=== PATIENT | female | born 1945 | race Caucasian/White ===

== ENCOUNTER 2017-09-01 11:21 | Inpatient (IN) ==
[2017-09-01] MEDS ORDERED: PANTOPRAZOLE 40 MG VIAL IV STA (14:15)
[2017-09-01] MEDS ORDERED: ONDANSETRON 4 MG/2 ML VIAL IV STA (14:15)
[2017-09-01] MEDS ORDERED: SODIUM CHLORIDE 0.9% 500 ML IV STA (14:15)
[2017-09-01] MEDS ORDERED: PANTOPRAZOLE 40 MG VIAL IV ONE (14:42)
[2017-09-01] MEDS ORDERED: ONDANSETRON 4 MG/2 ML VIAL ONE (14:42)
[2017-09-01 15:27] LABS: INR 1.2; PT Patient Result 12.6 SECS
[2017-09-01 15:55] LABS: Alanine Aminotransferase 10 U/L (13-56); Albumin 3.2 G/DL (3.4-5.0); Alkaline Phosphatase 85 U/L (45-117); Aspartate Amino Transferase 14 U/L (0-37); Blood Urea Nitrogen 51 MG/DL (7-18); Calcium 8.6 MG/DL (8.5-10.1); Glucose 108 MG/DL (74-106); Osmolality,Calculated 289.7 MOS/KG (273-304); Potassium 4.4 MMOL/L (3.5-5.1); Sodium 138 MMOL/L (136-145); Total Protein 6.3 G/DL (6.4-8.3); Troponin I Only < 0.015 NG/ML (0.00-0.045)
[2017-09-01] MEDS ORDERED: SODIUM CHLORIDE 0.9% 1,000 ML IV PRN (16:39)
[2017-09-01] MEDS ORDERED: GLUCAGON 1 MG VIAL IM PRN (16:41)
[2017-09-01] MEDS ORDERED: DEXTROSE 50% 25 GM/50 ML VIAL IV PRN (16:41)
[2017-09-01 16:42] LABS: Mean Corpuscular HGB Conc 25.5 GM/DL (32-36); Mean Corpuscular Hemoglobin 16 PG (27-34); Mean Corpuscular Volume 63.1 FL (87-102); NRBC # 0.05 10*3/uL; Platelet Count 156 T/CUMM (130-400); Red Blood Count 2.17 MC/CUMM (3.8-5.5); Red Cell Distribution Width 23.2 % (9.3-17.3); White Blood Count 4.2 T/CUMM (4-12)
[2017-09-01 16:46] LABS: Hematocrit 13.7 VOL% (35.7-47.0); Hemoglobin 3.5 GM/DL (12.0-16.0)
[2017-09-01 16:52] LABS: Ammonia 20 UMOL/L (11-32)
[2017-09-01 17:01] LABS: Alanine Aminotransferase < 9 U/L (13-56); Albumin 3.3 G/DL (3.4-5.0); Alkaline Phosphatase 85 U/L (45-117); Aspartate Amino Transferase 13 U/L (0-37); Bilirubin,Indirect 0.5 MG/DL (0.0-1.0); Total Protein 6.4 G/DL (6.4-8.3)
[2017-09-01 17:25] LABS: Lymphocytes 12 % (20-55); Nucleated Red Blood Cells 1 (0-5); Segmented Neutrophils 88 % (50-85); Total Cells Counted 100
[2017-09-01 17:36] LABS: Lymphocytes % 14.9 % (21.3-54.2); Neutrophils % 76.3 % (38.7-73.9)
[2017-09-01 17:37] LABS: Eosinophils % 0.8 % (0.00-10.9); Immature Granulocytes Absolute 0.04 #; Lymphocytes # 0.6 10*3/uL (1.4-4.0); Monocytes # 0.3 10*3/uL (0.11-0.8)
[2017-09-01 17:39] LABS: Hypochromasia 3+; Microcytosis 3+; Schistocytes Few; Tear Drop Cells Few
[2017-09-01 17:40] LABS: Elliptocytes Few; Platelet Estimate Normal
[2017-09-01 18:10] LABS: Lactic Acid 0.9 MMOL/L (0.4-2.0)
[2017-09-01 18:25] LABS: Hepatitis A Ab IgM Quant 0.17 Index; Hepatitis A Ab IgM Result Negative (Negative); Hepatitis B Core IgM Quant 0.22 Index; Hepatitis B Core IgM Result Negative (Negative); Hepatitis B Surface Ag Quant < 0.10 Index; Hepatitis B Surface Ag Result Negative (Negative); Hepatitis C Virus Ab Quant 0.05 Index; Hepatitis C Virus Ab Result Negative (Negative)
[2017-09-01 18:44] LABS: Ferritin 3.6 ng/ml (8-252); Total Protein 6.5 G/DL (6.4-8.3)
[2017-09-01 19:31] LABS: Apearance,Urine CLEAR (Clear); Bacteria,Urine Occasional /HPF (Few); Bilirubin,Urine Negative (Negative); Blood, Urine Negative (Negative); Glucose,Urine (UA) Negative (Negative); Ketones,Urine Negative (Negative); Nitrite,Urine Negative (Negative); Protein,Urine Negative; RBC,Urine <1 /HPF (0-4); Squamous Epithelial Cell,Urine Occasional /HPF (0-10); Urine Color Yellow (Yellow); Urine Specific Gravity 1.009 (1.001-1.035); Urine Urobilinogen < 2.0 EU/DL (0.2-1.0); WBC,Urine <1 /HPF (0-6)
[2017-09-01 19:32] LABS: Folate 9.8 NG/ML (5.4-24.0); Vitamin B12 599 PG/ML (211-911)
[2017-09-01 19:48] LABS: Thyroid Stimulating Hormone 11.5 uIU/ml (0.358-3.74)
[2017-09-01] MEDS: INSULIN LISPRO 100 UNIT/ML SUBCUT SCH (22:58)
[2017-09-02 03:24] LABS: Basophils % 0.2 % (0.0-0.8); Eosinophils # 0.1 10*3/uL (0.0-0.87); Eosinophils % 1.1 % (0.00-10.9); Hematocrit 19.1 VOL% (35.7-47.0); Immature Granulocytes % 1.3 %; Immature Granulocytes Absolute 0.07 #; Lymphocytes # 0.6 10*3/uL (1.4-4.0); Lymphocytes % 10.4 % (21.3-54.2); Mean Corpuscular HGB Conc 29.8 GM/DL (32-36); Mean Corpuscular Hemoglobin 21 PG (27-34); Mean Corpuscular Volume 71.3 FL (87-102); Monocytes # 0.4 10*3/uL (0.11-0.8); Monocytes % 6.6 % (1.7-12.7); NRBC # 0.09 10*3/uL; Neutrophils # 4.4 10*3/uL (1.4-7.4); Neutrophils % 80.4 % (38.7-73.9); Platelet Count 122 T/CUMM (130-400); Red Blood Count 2.68 MC/CUMM (3.8-5.5); Red Cell Distribution Width 26.9 % (9.3-17.3); White Blood Count 5.5 T/CUMM (4-12)
[2017-09-02 03:26] LABS: Basophils % 0.2 % (0.0-0.8); Eosinophils # 0.1 10*3/uL (0.0-0.87); Eosinophils % 1.1 % (0.00-10.9); Hematocrit 19.5 VOL% (35.7-47.0); Immature Granulocytes % 1.3 %; Immature Granulocytes Absolute 0.07 #; Lymphocytes # 0.5 10*3/uL (1.4-4.0); Lymphocytes % 9.6 % (21.3-54.2); Mean Corpuscular HGB Conc 29.7 GM/DL (32-36); Mean Corpuscular Hemoglobin 21 PG (27-34); Mean Corpuscular Volume 71.2 FL (87-102); Monocytes # 0.3 10*3/uL (0.11-0.8); Monocytes % 6.4 % (1.7-12.7); NRBC # 0.08 10*3/uL; Neutrophils # 4.3 10*3/uL (1.4-7.4); Neutrophils % 81.4 % (38.7-73.9); Platelet Count 126 T/CUMM (130-400); Red Blood Count 2.74 MC/CUMM (3.8-5.5); White Blood Count 5.3 T/CUMM (4-12)
[2017-09-02 03:27] LABS: Hematocrit 19.6 VOL% (35.7-47.0)
[2017-09-02 03:42] LABS: Hemoglobin 5.7 GM/DL (12.0-16.0)
[2017-09-02 03:46] LABS: Hemoglobin 5.8 GM/DL (12.0-16.0)
[2017-09-02 03:48] LABS: Hemoglobin 5.7 GM/DL (12.0-16.0)
[2017-09-02 03:54] LABS: Alanine Aminotransferase < 9 U/L (13-56); Albumin 2.9 G/DL (3.4-5.0); Alkaline Phosphatase 72 U/L (45-117); Aspartate Amino Transferase 14 U/L (0-37); Blood Urea Nitrogen 43 MG/DL (7-18); Calcium 8.4 MG/DL (8.5-10.1); Glucose 67 MG/DL (74-106); Osmolality,Calculated 287.4 MOS/KG (273-304); Potassium 4.2 MMOL/L (3.5-5.1); Sodium 140 MMOL/L (136-145); Total Protein 5.9 G/DL (6.4-8.3)
[2017-09-02] MEDS ORDERED: SODIUM CHLORIDE 0.9% 1,000 ML IV PRN ×2 (04:04→04:06)
[2017-09-02 07:39] LABS: Total Protein (Chem) 6.5 G/DL (6.4-8.3)
[2017-09-02] MEDS: INSULIN LISPRO 100 UNIT/ML SUBCUT SCH ×4 (07:45→21:08)
[2017-09-02] MEDS: LEVOTHYROXINE 25 MCG TABLET PO SCH (07:51)
[2017-09-02] MEDS ORDERED: PANTOPRAZOLE 40 MG TABLET PO SCH (09:00)
[2017-09-02 09:50] LABS: Hemoglobin A1 (Alkaline) 97.2 % (96.5-98.5); Hemoglobin A2 (Alkaline) 2.8 % (1.5-3.5)
[2017-09-02 10:59] LABS: Albumin (SPE) 3.5 G/DL (3.2-5.3); Albumin (SPE) Rel % 53.4 %; Alpha 1 (SPE) 0.3 G/DL (0.1-0.4)
[2017-09-02 11:00] LABS: Alpha 1 (SPE) Rel % 4.8 %; Alpha 2 (SPE) 0.7 G/DL (0.4-1.0); Alpha 2 (SPE) Rel % 10.8 %; Beta (SPE) 0.8 G/DL (0.5-1.1); Beta (SPE) Rel % 12.7 %; Gamma (SPE) 1.2 G/DL (0.7-1.7); Gamma (SPE) Rel % 18.3 %
[2017-09-02 11:39] LABS: Hematocrit 26.6 VOL% (35.7-47.0)
[2017-09-02] MEDS ORDERED: IRON SUCROSE 200 MG in SODIUM CHLORIDE 0.9% 100 ML IV ONE (15:30)
[2017-09-02] MEDS ORDERED: POLYETHYLENE GLYCOL POWDER 255 GM BOTTLE PO ONE (18:00)
[2017-09-02] MEDS ORDERED: PROMETHAZINE INJ 25 MG in SODIUM CHLORIDE 0.9% 50 ML IV PRN (19:47)
[2017-09-02] MEDS ORDERED: PROMETHAZINE 25 MG/1 ML VIAL ONE (19:59)
[2017-09-02] MEDS ORDERED: MAGNESIUM CITRATE 300 ML BOTTLE PO ONE (21:00)
[2017-09-02] MEDS: FERROUS SULFATE 325 MG TABLET PO SCH (21:15)
[2017-09-02] MEDS: ASCORBIC ACID 500 MG TABLET PO SCH (21:15)
[2017-09-02] MEDS: PANTOPRAZOLE 40 MG TABLET PO SCH (21:15)
[2017-09-03] MEDS: LEVOTHYROXINE 25 MCG TABLET PO SCH (06:13)
[2017-09-03 06:22] LABS: % Iron Saturation 74.6 % (18-50)
[2017-09-03 07:22] LABS: Basophils % 0.2 % (0.0-0.8); Eosinophils % 0.3 % (0.00-10.9); Hemoglobin 8.5 GM/DL (12.0-16.0); Immature Granulocytes % 0.8 %; Immature Granulocytes Absolute 0.08 #; Lymphocytes # 0.5 10*3/uL (1.4-4.0); Lymphocytes % 5.1 % (21.3-54.2); Mean Corpuscular HGB Conc 30.4 GM/DL (32-36); Mean Corpuscular Hemoglobin 24 PG (27-34); Mean Corpuscular Volume 78.7 FL (87-102); Monocytes # 0.6 10*3/uL (0.11-0.8); Monocytes % 5.8 % (1.7-12.7); NRBC # 0.15 10*3/uL; Neutrophils # 8.9 10*3/uL (1.4-7.4); Neutrophils % 87.8 % (38.7-73.9); Platelet Count 107 T/CUMM (130-400); Red Blood Count 3.56 MC/CUMM (3.8-5.5); Red Cell Distribution Width 25.6 % (9.3-17.3); White Blood Count 10.1 T/CUMM (4-12)
[2017-09-03 07:39] LABS: Hypochromasia 1+; Microcytosis 2+; Spherocytes Few
[2017-09-03 07:40] LABS: Ovalocytes Slight; Platelet Estimate Decreased; Polychromasia Slight
[2017-09-03] MEDS: INSULIN LISPRO 100 UNIT/ML SUBCUT SCH ×4 (08:21→23:46)
[2017-09-03] MEDS: FERROUS SULFATE 325 MG TABLET PO SCH ×2 (09:46→20:54)
[2017-09-03] MEDS: PANTOPRAZOLE 40 MG TABLET PO SCH ×2 (09:46→20:54)
[2017-09-03] MEDS: ASCORBIC ACID 500 MG TABLET PO SCH ×2 (09:46→20:54)
[2017-09-03] MEDS ORDERED: MAGNESIUM CITRATE 300 ML BOTTLE PO ONE (10:19)
[2017-09-03] MEDS ORDERED: PROPOFOL 200 MG/20 ML VIAL IV ONE (11:11)
[2017-09-03] MEDS ORDERED: LIDOCAINE 100 MG/5 ML SYRINGE ONE (11:11)
[2017-09-03] MEDS ORDERED: PHENYLEPHRINE 1 MG/10 ML SYRINGE IV ONE (11:11)
[2017-09-03] MEDS ORDERED: POLYETHYLENE GLYCOL 3350/ELECTROLYTES 4,000 ML BOTTLE NG ONE (18:00)
[2017-09-04] MEDS: LEVOTHYROXINE 25 MCG TABLET PO SCH (06:35)
[2017-09-04] MEDS: INSULIN LISPRO 100 UNIT/ML SUBCUT SCH ×4 (08:47→19:24)
[2017-09-04] MEDS: ASCORBIC ACID 500 MG TABLET PO SCH ×2 (09:58→20:22)
[2017-09-04] MEDS: PANTOPRAZOLE 40 MG TABLET PO SCH ×2 (09:58→20:22)
[2017-09-04] MEDS: FERROUS SULFATE 325 MG TABLET PO SCH (09:58)
[2017-09-04] MEDS ORDERED: LIDOCAINE 100 MG/5 ML SYRINGE ONE (10:15)
[2017-09-04] MEDS ORDERED: PROPOFOL 200 MG/20 ML VIAL IV ONE (10:15)
[2017-09-04] MEDS: PIPERACILLIN/TAZOBACTAM 3,375 MG in SODIUM CHLORIDE 0.9% 100 ML IV SCH ×2 (16:06→22:41)
[2017-09-04] MEDS: FUROSEMIDE 20 MG/2 ML VIAL IV SCH (16:47)
[2017-09-04] MEDS ORDERED: NITROGLYCERIN SL 0.4 MG TABLET SL PRN (21:19)
[2017-09-04] MEDS ORDERED: MORPHINE 4 MG/1 ML VIAL IV PRN (21:19)
[2017-09-04] MEDS ORDERED: ASPIRIN CHEW 81 MG TABLET PO ONE (21:19)
[2017-09-04] MEDS ORDERED: ALBUTEROL/IPRATROPIUM 3 ML NEB RESP TX ONE (21:21)
[2017-09-04] MEDS ORDERED: ASPIRIN 325 MG TABLET ONE (21:22)
[2017-09-04] MEDS ORDERED: methylPREDNISolone SOD SUC 125 MG/2 ML VIAL IV ONE (21:33)
[2017-09-04 21:49] LABS: Basophils % 0.1 % (0.0-0.8); Eosinophils % 0.1 % (0.00-10.9); Hemoglobin 8.9 GM/DL (12.0-16.0); Immature Granulocytes % 1.1 %; Immature Granulocytes Absolute 0.14 #; Lymphocytes # 0.5 10*3/uL (1.4-4.0); Lymphocytes % 3.5 % (21.3-54.2); Mean Corpuscular HGB Conc 28.4 GM/DL (32-36); Mean Corpuscular Hemoglobin 23 PG (27-34); Mean Corpuscular Volume 82.4 FL (87-102); Monocytes # 0.9 10*3/uL (0.11-0.8); Monocytes % 6.6 % (1.7-12.7); Neutrophils # 11.7 10*3/uL (1.4-7.4); Neutrophils % 88.6 % (38.7-73.9); Platelet Count 107 T/CUMM (130-400); Red Cell Distribution Width 27.8 % (9.3-17.3); White Blood Count 13.2 T/CUMM (4-12)
[2017-09-04 21:53] LABS: Hematocrit 31.3 VOL% (35.7-47.0)
[2017-09-04] MEDS ORDERED: methylPREDNISolone SOD SUC 40 MG/1 ML VIAL IV SCH (22:00)
[2017-09-04 22:02] LABS: Albumin 2.9 G/DL (3.4-5.0); Bilirubin,Total 2.6 MG/DL (0.2-1.0); Calcium 8.7 MG/DL (8.5-10.1); Osmolality,Calculated 290.1 MOS/KG (273-304); Potassium 4.4 MMOL/L (3.5-5.1); Total Protein 6.1 G/DL (6.4-8.3)
[2017-09-04] MEDS: ALBUTEROL/IPRATROPIUM 3 ML NEB RESP TX SCH (23:11)
[2017-09-05] MEDS: ALBUTEROL/IPRATROPIUM 3 ML NEB RESP TX SCH ×5 (03:22→20:28)
[2017-09-05 05:17] LABS: Basophils % 0.1 % (0.0-0.8); Hematocrit 28.6 VOL% (35.7-47.0); Hemoglobin 8.3 GM/DL (12.0-16.0); Lymphocytes # 0.1 10*3/uL (1.4-4.0); Lymphocytes % 1.1 % (21.3-54.2); Mean Corpuscular Hemoglobin 24 PG (27-34); Mean Corpuscular Volume 81.9 FL (87-102); Monocytes # 0.2 10*3/uL (0.11-0.8); Monocytes % 1.7 % (1.7-12.7); NRBC # 0.05 10*3/uL; Neutrophils # 9.9 10*3/uL (1.4-7.4); Neutrophils % 96.1 % (38.7-73.9); Platelet Count 98 T/CUMM (130-400); Red Blood Count 3.49 MC/CUMM (3.8-5.5); Red Cell Distribution Width 28.2 % (9.3-17.3); White Blood Count 10.3 T/CUMM (4-12)
[2017-09-05] MEDS: methylPREDNISolone SOD SUC 40 MG/1 ML VIAL IV SCH ×3 (05:43→21:01)
[2017-09-05] MEDS: PIPERACILLIN/TAZOBACTAM 3,375 MG in SODIUM CHLORIDE 0.9% 100 ML IV SCH ×3 (05:51→23:18)
[2017-09-05 05:54] LABS: Calcium 8.3 MG/DL (8.5-10.1); Osmolality,Calculated 295.8 MOS/KG (273-304); Potassium 4.2 MMOL/L (3.5-5.1)
[2017-09-05 06:02] LABS: Lymphocytes 1 % (20-55); Segmented Neutrophils 98 % (50-85); Total Cells Counted 100
[2017-09-05 06:03] LABS: Acanthocytes Few; Hypochromasia 1+; Microcytosis 2+; Ovalocytes Slight; Polychromasia Slight
[2017-09-05 06:04] LABS: Platelet Estimate Decreased
[2017-09-05] MEDS: LEVOTHYROXINE 25 MCG TABLET PO SCH (06:38)
[2017-09-05] MEDS: ASCORBIC ACID 500 MG TABLET PO SCH ×2 (09:52→21:01)
[2017-09-05] MEDS: FERROUS GLUCONATE 240 MG TABLET PO SCH (09:52)
[2017-09-05] MEDS: LINACLOTIDE 145 MCG CAPSULE PO SCH (09:52)
[2017-09-05] MEDS: INSULIN LISPRO 100 UNIT/ML SUBCUT SCH ×4 (09:52→21:44)
[2017-09-05] MEDS: PANTOPRAZOLE 40 MG TABLET PO SCH ×2 (09:52→21:01)
[2017-09-05] MEDS: FUROSEMIDE 20 MG/2 ML VIAL IV SCH ×2 (09:54→15:30)
[2017-09-05] MEDS: DESITIN 4OZ/NYSTATIN 15 GRAM MIXTURE PASTE TOP SCH ×2 (11:49→21:45)
[2017-09-06] MEDS: ALBUTEROL/IPRATROPIUM 3 ML NEB RESP TX SCH ×7 (00:26→23:05)
[2017-09-06] MEDS: methylPREDNISolone SOD SUC 40 MG/1 ML VIAL IV SCH (06:01)
[2017-09-06] MEDS: PIPERACILLIN/TAZOBACTAM 3,375 MG in SODIUM CHLORIDE 0.9% 100 ML IV SCH ×3 (06:05→22:11)
[2017-09-06] MEDS: LEVOTHYROXINE 25 MCG TABLET PO SCH (06:05)
[2017-09-06] MEDS: INSULIN LISPRO 100 UNIT/ML SUBCUT SCH ×4 (08:54→20:18)
[2017-09-06] MEDS: FERROUS GLUCONATE 240 MG TABLET PO SCH (08:54)
[2017-09-06] MEDS: ASCORBIC ACID 500 MG TABLET PO SCH ×2 (08:54→22:12)
[2017-09-06] MEDS: PANTOPRAZOLE 40 MG TABLET PO SCH ×2 (08:54→22:11)
[2017-09-06] MEDS: LINACLOTIDE 145 MCG CAPSULE PO SCH (08:54)
[2017-09-06] MEDS: DESITIN 4OZ/NYSTATIN 15 GRAM MIXTURE PASTE TOP SCH ×2 (08:56→22:12)
[2017-09-06] MEDS: predniSONE 20 MG TABLET PO SCH (08:57)
[2017-09-06] MEDS: FUROSEMIDE 20 MG/2 ML VIAL IV SCH (10:15)
[2017-09-06] MEDS: CARVEDILOL 3.125 MG TABLET PO SCH ×2 (10:48→22:12)
[2017-09-06] MEDS: FUROSEMIDE 40 MG TABLET PO SCH (16:30)
[2017-09-07] MEDS: ALBUTEROL/IPRATROPIUM 3 ML NEB RESP TX SCH ×6 (02:47→23:45)
[2017-09-07] MEDS: PIPERACILLIN/TAZOBACTAM 3,375 MG in SODIUM CHLORIDE 0.9% 100 ML IV SCH ×3 (06:35→22:43)
[2017-09-07] MEDS: LEVOTHYROXINE 25 MCG TABLET PO SCH (06:35)
[2017-09-07 07:14] LABS: Basophils % 0.1 % (0.0-0.8); Hematocrit 30.1 VOL% (35.7-47.0); Hemoglobin 8.8 GM/DL (12.0-16.0); Immature Granulocytes % 3.6 %; Immature Granulocytes Absolute 0.79 #; Lymphocytes # 0.1 10*3/uL (1.4-4.0); Lymphocytes % 0.5 % (21.3-54.2); Mean Corpuscular HGB Conc 29.2 GM/DL (32-36); Mean Corpuscular Hemoglobin 24 PG (27-34); Mean Corpuscular Volume 82.9 FL (87-102); Monocytes # 0.5 10*3/uL (0.11-0.8); Monocytes % 2.3 % (1.7-12.7); NRBC # 0.07 10*3/uL; Neutrophils # 20.4 10*3/uL (1.4-7.4); Neutrophils % 93.5 % (38.7-73.9); Platelet Count 111 T/CUMM (130-400); Red Blood Count 3.63 MC/CUMM (3.8-5.5); Red Cell Distribution Width 28.8 % (9.3-17.3); White Blood Count 21.9 T/CUMM (4-12)
[2017-09-07 07:18] LABS: Calcium 8.5 MG/DL (8.5-10.1); Osmolality,Calculated 301.4 MOS/KG (273-304); Potassium 3.1 MMOL/L (3.5-5.1)
[2017-09-07] MEDS: LINACLOTIDE 145 MCG CAPSULE PO SCH (07:59)
[2017-09-07] MEDS: INSULIN LISPRO 100 UNIT/ML SUBCUT SCH ×4 (08:00→20:33)
[2017-09-07 08:09] LABS: Band Neutrophils 1 % (0-10); Giant Platelets Few; Hypochromasia 1+; Microcytosis 1+; Ovalocytes Slight; Platelet Estimate Decreased; Segmented Neutrophils 97 % (50-85); Total Cells Counted 100
[2017-09-07] MEDS: FUROSEMIDE 40 MG TABLET PO SCH (09:19)
[2017-09-07] MEDS: predniSONE 20 MG TABLET PO SCH (09:23)
[2017-09-07] MEDS: FUROSEMIDE 40 MG/4 ML VIAL IV SCH ×3 (09:23→20:32)
[2017-09-07] MEDS: CARVEDILOL 3.125 MG TABLET PO SCH (09:23)
[2017-09-07] MEDS: POTASSIUM CHLORIDE 20 MEQ TABLET PO PRN (09:23)
[2017-09-07] MEDS: PANTOPRAZOLE 40 MG TABLET PO SCH ×2 (09:23→20:32)
[2017-09-07] MEDS: FERROUS GLUCONATE 240 MG TABLET PO SCH (09:23)
[2017-09-07] MEDS: ASCORBIC ACID 500 MG TABLET PO SCH ×2 (09:23→20:32)
[2017-09-07] MEDS: DESITIN 4OZ/NYSTATIN 15 GRAM MIXTURE PASTE TOP SCH ×2 (09:27→20:33)
[2017-09-07] MEDS: LEVOFLOXACIN INJ 500 MG in PREMIX 1 EACH IV SCH (10:58)
[2017-09-07] MEDS: POTASSIUM CHLORIDE RIDER 10 MEQ in PREMIX 1 EACH IV PRN ×2 (13:18→14:40)
[2017-09-07] MEDS: CARVEDILOL 6.25 MG TABLET PO SCH (20:32)
[2017-09-08] MEDS: ALBUTEROL/IPRATROPIUM 3 ML NEB RESP TX SCH ×6 (03:33→23:58)
[2017-09-08] MEDS: FUROSEMIDE 40 MG/4 ML VIAL IV SCH ×4 (04:16→21:11)
[2017-09-08] MEDS: LEVOTHYROXINE 25 MCG TABLET PO SCH (05:38)
[2017-09-08] MEDS: PIPERACILLIN/TAZOBACTAM 3,375 MG in SODIUM CHLORIDE 0.9% 100 ML IV SCH ×3 (05:39→22:53)
[2017-09-08 05:43] LABS: Calcium 8.7 MG/DL (8.5-10.1); Osmolality,Calculated 303.4 MOS/KG (273-304); Potassium 2.7 MMOL/L (3.5-5.1)
[2017-09-08 05:46] LABS: Basophils % 0.1 % (0.0-0.8); Hematocrit 32.3 VOL% (35.7-47.0); Hemoglobin 9.2 GM/DL (12.0-16.0); Immature Granulocytes % 1.8 %; Immature Granulocytes Absolute 0.37 #; Lymphocytes # 0.2 10*3/uL (1.4-4.0); Mean Corpuscular HGB Conc 28.5 GM/DL (32-36); Mean Corpuscular Hemoglobin 24 PG (27-34); Mean Corpuscular Volume 84.1 FL (87-102); Monocytes # 0.6 10*3/uL (0.11-0.8); Monocytes % 3.1 % (1.7-12.7); NRBC # 0.04 10*3/uL; Neutrophils # 18.8 10*3/uL (1.4-7.4); Platelet Count 122 T/CUMM (130-400); Red Blood Count 3.84 MC/CUMM (3.8-5.5); Red Cell Distribution Width 28.5 % (9.3-17.3)
[2017-09-08] MEDS: POTASSIUM CHLORIDE 20 MEQ TABLET PO PRN ×4 (06:05→12:53)
[2017-09-08 06:35] LABS: Hypochromasia 2+; Lymphocytes 4 % (20-55); Microcytosis 2+; Platelet Estimate Decreased; Segmented Neutrophils 92 % (50-85); Total Cells Counted 100
[2017-09-08] MEDS: INSULIN LISPRO 100 UNIT/ML SUBCUT SCH ×4 (08:06→21:11)
[2017-09-08] MEDS: CARVEDILOL 6.25 MG TABLET PO SCH ×2 (09:27→21:10)
[2017-09-08] MEDS: FERROUS GLUCONATE 240 MG TABLET PO SCH (09:27)
[2017-09-08] MEDS: predniSONE 20 MG TABLET PO SCH (09:27)
[2017-09-08] MEDS: LINACLOTIDE 145 MCG CAPSULE PO SCH (09:27)
[2017-09-08] MEDS: PANTOPRAZOLE 40 MG TABLET PO SCH ×2 (09:27→21:11)
[2017-09-08] MEDS: ASCORBIC ACID 500 MG TABLET PO SCH ×2 (09:27→21:10)
[2017-09-08] MEDS: DESITIN 4OZ/NYSTATIN 15 GRAM MIXTURE PASTE TOP SCH ×2 (09:33→22:52)
[2017-09-08] MEDS: LEVOFLOXACIN INJ 500 MG in PREMIX 1 EACH IV SCH (10:47)
[2017-09-08] MEDS ORDERED: POTASSIUM CHLORIDE 20 MEQ TABLET PO SCH (13:30)
[2017-09-08] MEDS: POTASSIUM CHLORIDE 20 MEQ TABLET PO SCH ×3 (15:52→22:52)
[2017-09-09] MEDS: ALBUTEROL/IPRATROPIUM 3 ML NEB RESP TX SCH ×6 (00:20→19:01)
[2017-09-09] MEDS: FUROSEMIDE 40 MG/4 ML VIAL IV SCH ×3 (03:49→16:07)
[2017-09-09] MEDS: LEVOTHYROXINE 25 MCG TABLET PO SCH (06:15)
[2017-09-09] MEDS: PIPERACILLIN/TAZOBACTAM 3,375 MG in SODIUM CHLORIDE 0.9% 100 ML IV SCH ×2 (06:18→16:01)
[2017-09-09 07:06] LABS: Calcium 9.1 MG/DL (8.5-10.1); Osmolality,Calculated 297.7 MOS/KG (273-304); Potassium 2.8 MMOL/L (3.5-5.1)
[2017-09-09] MEDS ORDERED: MAGNESIUM SULF RIDER 4 GM in PREMIX 1 EACH IV ONE (08:00)
[2017-09-09] MEDS: LINACLOTIDE 145 MCG CAPSULE PO SCH (10:42)
[2017-09-09] MEDS: POTASSIUM CHLORIDE 20 MEQ TABLET PO SCH ×4 (10:44→20:29)
[2017-09-09] MEDS: PANTOPRAZOLE 40 MG TABLET PO SCH ×2 (10:44→21:28)
[2017-09-09] MEDS: CARVEDILOL 6.25 MG TABLET PO SCH ×2 (10:44→21:28)
[2017-09-09] MEDS: predniSONE 20 MG TABLET PO SCH (10:44)
[2017-09-09] MEDS: FERROUS GLUCONATE 240 MG TABLET PO SCH (10:44)
[2017-09-09] MEDS: ASCORBIC ACID 500 MG TABLET PO SCH ×2 (10:44→21:28)
[2017-09-09] MEDS: INSULIN LISPRO 100 UNIT/ML SUBCUT SCH ×4 (10:46→20:29)
[2017-09-09] MEDS: DESITIN 4OZ/NYSTATIN 15 GRAM MIXTURE PASTE TOP SCH ×2 (10:46→21:30)
[2017-09-09] MEDS: LEVOFLOXACIN INJ 500 MG in PREMIX 1 EACH IV SCH (13:10)
[2017-09-09] MEDS: CIPROFLOXACIN 500 MG TABLET PO SCH (16:07)
[2017-09-10] MEDS: ALBUTEROL/IPRATROPIUM 3 ML NEB RESP TX SCH ×6 (01:09→19:32)
[2017-09-10] MEDS: CIPROFLOXACIN 500 MG TABLET PO SCH ×2 (03:31→16:20)
[2017-09-10] MEDS: FUROSEMIDE 40 MG/4 ML VIAL IV SCH ×2 (03:33→16:18)
[2017-09-10] MEDS: LEVOTHYROXINE 25 MCG TABLET PO SCH (06:23)
[2017-09-10 06:47] LABS: Calcium 9.1 MG/DL (8.5-10.1); Osmolality,Calculated 290.3 MOS/KG (273-304); Potassium 3.3 MMOL/L (3.5-5.1)
[2017-09-10] MEDS: INSULIN LISPRO 100 UNIT/ML SUBCUT SCH ×4 (07:52→21:26)
[2017-09-10] MEDS: CARVEDILOL 6.25 MG TABLET PO SCH ×2 (08:13→21:28)
[2017-09-10] MEDS: FERROUS GLUCONATE 240 MG TABLET PO SCH (08:13)
[2017-09-10] MEDS: predniSONE 20 MG TABLET PO SCH (08:13)
[2017-09-10] MEDS: ASCORBIC ACID 500 MG TABLET PO SCH ×2 (08:13→21:28)
[2017-09-10] MEDS: LINACLOTIDE 145 MCG CAPSULE PO SCH (08:13)
[2017-09-10] MEDS: POTASSIUM CHLORIDE 20 MEQ TABLET PO PRN ×3 (08:13→15:10)
[2017-09-10] MEDS: PANTOPRAZOLE 40 MG TABLET PO SCH ×2 (08:13→21:28)
[2017-09-10] MEDS: DESITIN 4OZ/NYSTATIN 15 GRAM MIXTURE PASTE TOP SCH ×2 (08:14→21:35)
[2017-09-10 08:40] LABS: Basophils % 0.2 % (0.0-0.8); Eosinophils % 0.2 % (0.00-10.9); Hematocrit 41.4 VOL% (35.7-47.0); Lymphocytes # 0.4 10*3/uL (1.4-4.0); Lymphocytes % 1.9 % (21.3-54.2); Mean Corpuscular HGB Conc 29.7 GM/DL (32-36); Mean Corpuscular Hemoglobin 24 PG (27-34); Mean Corpuscular Volume 80.4 FL (87-102); Monocytes # 1.1 10*3/uL (0.11-0.8); Monocytes % 5.4 % (1.7-12.7); NRBC # 0.02 10*3/uL; Neutrophils # 18.2 10*3/uL (1.4-7.4); Neutrophils % 91.3 % (38.7-73.9); Red Cell Distribution Width 30.1 % (9.3-17.3); White Blood Count 19.9 T/CUMM (4-12)
[2017-09-10 08:47] LABS: Hemoglobin 12.3 GM/DL (12.0-16.0); Platelet Count 221 T/CUMM (130-400); Red Blood Count 5.15 MC/CUMM (3.8-5.5)
[2017-09-10 08:55] LABS: Lymphocytes 1 % (20-55); Platelet Estimate Adequate; Segmented Neutrophils 97 % (50-85); Total Cells Counted 100
[2017-09-10 08:56] LABS: Giant Platelets Few; Hypochromasia 1+; Microcytosis 1+; Ovalocytes Slight
[2017-09-10] MEDS: POTASSIUM CHLORIDE 20 MEQ TABLET PO SCH ×3 (16:58→21:28)
[2017-09-11] MEDS: POTASSIUM CHLORIDE 20 MEQ TABLET PO SCH (00:43)
[2017-09-11] MEDS: ALBUTEROL/IPRATROPIUM 3 ML NEB RESP TX SCH ×7 (01:13→23:56)
[2017-09-11] MEDS ORDERED: FUROSEMIDE 20 MG/2 ML VIAL ONE (03:56)
[2017-09-11] MEDS: CIPROFLOXACIN 500 MG TABLET PO SCH ×2 (04:18→16:51)
[2017-09-11] MEDS: FUROSEMIDE 40 MG/4 ML VIAL IV SCH ×2 (04:18→15:26)
[2017-09-11 05:27] LABS: Basophils % 0.1 % (0.0-0.8); Eosinophils # 0.1 10*3/uL (0.0-0.87); Eosinophils % 0.3 % (0.00-10.9); Hemoglobin 12.5 GM/DL (12.0-16.0); Immature Granulocytes % 1.7 %; Immature Granulocytes Absolute 0.29 #; Lymphocytes # 0.5 10*3/uL (1.4-4.0); Mean Corpuscular HGB Conc 30.5 GM/DL (32-36); Mean Corpuscular Hemoglobin 24 PG (27-34); Monocytes # 1.1 10*3/uL (0.11-0.8); Monocytes % 6.2 % (1.7-12.7); NRBC # 0.03 10*3/uL; Neutrophils # 15.3 10*3/uL (1.4-7.4); Neutrophils % 88.7 % (38.7-73.9); Platelet Count 249 T/CUMM (130-400); Red Blood Count 5.19 MC/CUMM (3.8-5.5); Red Cell Distribution Width 30.8 % (9.3-17.3); White Blood Count 17.2 T/CUMM (4-12)
[2017-09-11 05:53] LABS: Calcium 9.3 MG/DL (8.5-10.1); Osmolality,Calculated 290.5 MOS/KG (273-304)
[2017-09-11 05:55] LABS: Giant Platelets Few; Hypochromasia 1+; Lymphocytes 3 % (20-55); Microcytosis 1+; Platelet Estimate Adequate; Segmented Neutrophils 93 % (50-85); Total Cells Counted 100
[2017-09-11] MEDS: LEVOTHYROXINE 25 MCG TABLET PO SCH (06:13)
[2017-09-11] MEDS: INSULIN LISPRO 100 UNIT/ML SUBCUT SCH ×4 (09:19→21:11)
[2017-09-11] MEDS: LINACLOTIDE 145 MCG CAPSULE PO SCH (09:21)
[2017-09-11] MEDS: ASCORBIC ACID 500 MG TABLET PO SCH ×2 (09:22→21:12)
[2017-09-11] MEDS: CARVEDILOL 6.25 MG TABLET PO SCH ×2 (09:22→21:12)
[2017-09-11] MEDS: FERROUS GLUCONATE 240 MG TABLET PO SCH (09:22)
[2017-09-11] MEDS: predniSONE 20 MG TABLET PO SCH (09:22)
[2017-09-11] MEDS: PANTOPRAZOLE 40 MG TABLET PO SCH ×2 (09:22→21:12)
[2017-09-11] MEDS: DESITIN 4OZ/NYSTATIN 15 GRAM MIXTURE PASTE TOP SCH ×2 (09:23→21:12)
[2017-09-11 16:07] LABS: ABG Base Excess 10.9 MMOL/L (-2.5-2.5); ABG HCO3 34.1 MMOL/L (20-26); ABG Oxygen Saturation 97.6 % (95-100); ABG PCO2 39.3 MM HG (35-48); ABG PH 7.556 (7.35-7.45); ABG PO2 94.4 MM HG (80-95); ABG TCO2 35.3 MMOL/L (23-27)
[2017-09-11] MEDS: CYPROHEPTADINE 4 MG TABLET PO SCH (21:11)
[2017-09-12] MEDS: ALBUTEROL/IPRATROPIUM 3 ML NEB RESP TX SCH ×5 (02:57→19:45)
[2017-09-12] MEDS: FUROSEMIDE 40 MG/4 ML VIAL IV SCH (03:21)
[2017-09-12] MEDS: CIPROFLOXACIN 500 MG TABLET PO SCH ×2 (03:22→17:02)
[2017-09-12] MEDS: LEVOTHYROXINE 25 MCG TABLET PO SCH (05:59)
[2017-09-12 06:16] LABS: Calcium 8.7 MG/DL (8.5-10.1); Osmolality,Calculated 293.4 MOS/KG (273-304); Potassium 3.1 MMOL/L (3.5-5.1)
[2017-09-12] MEDS: INSULIN LISPRO 100 UNIT/ML SUBCUT SCH ×4 (08:14→21:20)
[2017-09-12] MEDS: CARVEDILOL 6.25 MG TABLET PO SCH ×2 (08:47→21:09)
[2017-09-12] MEDS: predniSONE 20 MG TABLET PO SCH (08:47)
[2017-09-12] MEDS: CYPROHEPTADINE 4 MG TABLET PO SCH ×2 (08:47→21:09)
[2017-09-12] MEDS: FERROUS GLUCONATE 240 MG TABLET PO SCH (08:47)
[2017-09-12] MEDS: ASCORBIC ACID 500 MG TABLET PO SCH ×2 (08:47→21:10)
[2017-09-12] MEDS: LINACLOTIDE 145 MCG CAPSULE PO SCH (08:47)
[2017-09-12] MEDS: PANTOPRAZOLE 40 MG TABLET PO SCH ×2 (08:47→21:10)
[2017-09-12] MEDS: DESITIN 4OZ/NYSTATIN 15 GRAM MIXTURE PASTE TOP SCH ×2 (08:48→21:21)
[2017-09-12] MEDS: POTASSIUM CHLORIDE 20 MEQ TABLET PO PRN (13:03)
[2017-09-12] MEDS: POTASSIUM CHLORIDE 20 MEQ TABLET PO SCH ×3 (14:31→21:30)
[2017-09-13] MEDS: POTASSIUM CHLORIDE 20 MEQ TABLET PO SCH ×2 (01:39→06:00)
[2017-09-13] MEDS: ALBUTEROL/IPRATROPIUM 3 ML NEB RESP TX SCH ×6 (03:33→19:44)
[2017-09-13] MEDS: CIPROFLOXACIN 500 MG TABLET PO SCH ×2 (03:53→17:09)
[2017-09-13 06:00] LABS: Calcium 8.5 MG/DL (8.5-10.1); Osmolality,Calculated 279.5 MOS/KG (273-304); Potassium 5.2 MMOL/L (3.5-5.1)
[2017-09-13] MEDS: LEVOTHYROXINE 25 MCG TABLET PO SCH (06:00)
[2017-09-13] MEDS: INSULIN LISPRO 100 UNIT/ML SUBCUT SCH ×4 (08:01→21:07)
[2017-09-13] MEDS: PANTOPRAZOLE 40 MG TABLET PO SCH ×2 (09:33→21:06)
[2017-09-13] MEDS: FUROSEMIDE 80 MG TABLET PO SCH (09:33)
[2017-09-13] MEDS: predniSONE 20 MG TABLET PO SCH (09:33)
[2017-09-13] MEDS: CARVEDILOL 6.25 MG TABLET PO SCH ×2 (09:33→21:06)
[2017-09-13] MEDS: DESITIN 4OZ/NYSTATIN 15 GRAM MIXTURE PASTE TOP SCH ×2 (09:33→21:33)
[2017-09-13] MEDS: CYPROHEPTADINE 4 MG TABLET PO SCH ×2 (09:33→21:06)
[2017-09-13] MEDS: LINACLOTIDE 145 MCG CAPSULE PO SCH (09:33)
[2017-09-13] MEDS: FERROUS GLUCONATE 240 MG TABLET PO SCH (09:33)
[2017-09-13] MEDS: ASCORBIC ACID 500 MG TABLET PO SCH ×2 (09:33→21:06)
[2017-09-14] MEDS: ALBUTEROL/IPRATROPIUM 3 ML NEB RESP TX SCH ×7 (00:19→23:43)
[2017-09-14] MEDS: CIPROFLOXACIN 500 MG TABLET PO SCH ×2 (04:00→16:57)
[2017-09-14] MEDS: LEVOTHYROXINE 25 MCG TABLET PO SCH (05:59)
[2017-09-14] MEDS: INSULIN LISPRO 100 UNIT/ML SUBCUT SCH ×4 (08:21→21:19)
[2017-09-14] MEDS: LINACLOTIDE 145 MCG CAPSULE PO SCH (09:54)
[2017-09-14] MEDS: CYPROHEPTADINE 4 MG TABLET PO SCH ×2 (09:55→21:19)
[2017-09-14] MEDS: FUROSEMIDE 80 MG TABLET PO SCH (09:55)
[2017-09-14] MEDS: FERROUS GLUCONATE 240 MG TABLET PO SCH (09:55)
[2017-09-14] MEDS: PANTOPRAZOLE 40 MG TABLET PO SCH ×2 (09:55→21:19)
[2017-09-14] MEDS: CARVEDILOL 6.25 MG TABLET PO SCH ×2 (09:55→21:19)
[2017-09-14] MEDS: predniSONE 20 MG TABLET PO SCH (09:55)
[2017-09-14] MEDS: ASCORBIC ACID 500 MG TABLET PO SCH ×2 (09:55→21:19)
[2017-09-14] MEDS: DESITIN 4OZ/NYSTATIN 15 GRAM MIXTURE PASTE TOP SCH ×2 (09:56→21:20)
[2017-09-15] MEDS: CIPROFLOXACIN 500 MG TABLET PO SCH ×2 (03:44→20:51)
[2017-09-15] MEDS: ALBUTEROL/IPRATROPIUM 3 ML NEB RESP TX SCH ×6 (04:30→23:04)
[2017-09-15 05:09] LABS: Basophils # 0.1 10*3/uL (0.0-0.2); Basophils % 0.2 % (0.0-0.8); Hematocrit 36.1 VOL% (35.7-47.0); Hemoglobin 11.4 GM/DL (12.0-16.0); Immature Granulocytes % 3.5 %; Immature Granulocytes Absolute 0.85 #; Lymphocytes # 0.5 10*3/uL (1.4-4.0); Lymphocytes % 2.2 % (21.3-54.2); Mean Corpuscular HGB Conc 31.6 GM/DL (32-36); Mean Corpuscular Hemoglobin 25 PG (27-34); Mean Corpuscular Volume 78.1 FL (87-102); Monocytes # 0.8 10*3/uL (0.11-0.8); Monocytes % 3.2 % (1.7-12.7); Neutrophils % 90.9 % (38.7-73.9); Platelet Count 295 T/CUMM (130-400); Red Blood Count 4.62 MC/CUMM (3.8-5.5); Red Cell Distribution Width 30.5 % (9.3-17.3); White Blood Count 24.2 T/CUMM (4-12)
[2017-09-15 05:33] LABS: Calcium 8.2 MG/DL (8.5-10.1); Potassium 3.7 MMOL/L (3.5-5.1)
[2017-09-15 05:38] LABS: Giant Platelets Few; Hypochromasia 1+; Lymphocytes 1 % (20-55); Microcytosis 1+; Ovalocytes Slight; Platelet Estimate Adequate; Segmented Neutrophils 96 % (50-85); Total Cells Counted 100
[2017-09-15] MEDS: LEVOTHYROXINE 25 MCG TABLET PO SCH (06:00)
[2017-09-15] MEDS ORDERED: predniSONE 10 MG TABLET PO ONE (09:17)
[2017-09-15] MEDS: INSULIN LISPRO 100 UNIT/ML SUBCUT SCH ×4 (09:29→20:52)
[2017-09-15] MEDS: ASCORBIC ACID 500 MG TABLET PO SCH ×2 (09:30→20:51)
[2017-09-15] MEDS: LINACLOTIDE 145 MCG CAPSULE PO SCH (09:30)
[2017-09-15] MEDS: CYPROHEPTADINE 4 MG TABLET PO SCH ×2 (09:31→20:51)
[2017-09-15] MEDS: CARVEDILOL 6.25 MG TABLET PO SCH ×2 (09:31→20:51)
[2017-09-15] MEDS: PANTOPRAZOLE 40 MG TABLET PO SCH ×2 (09:31→20:51)
[2017-09-15] MEDS: FERROUS GLUCONATE 240 MG TABLET PO SCH (09:31)
[2017-09-15] MEDS: DESITIN 4OZ/NYSTATIN 15 GRAM MIXTURE PASTE TOP SCH ×2 (09:31→20:51)
[2017-09-15] MEDS: FUROSEMIDE 20 MG TABLET PO SCH (09:35)
[2017-09-15] MEDS: FUROSEMIDE 80 MG TABLET PO SCH (09:37)
[2017-09-15] MEDS: predniSONE 20 MG TABLET PO SCH (09:37)
[2017-09-15] MEDS ORDERED: ONDANSETRON 4 MG/2 ML VIAL IV PRN (12:27)
[2017-09-16] MEDS: ALBUTEROL/IPRATROPIUM 3 ML NEB RESP TX SCH ×6 (02:36→22:34)
[2017-09-16 04:54] LABS: Basophils % 0.2 % (0.0-0.8); Eosinophils # 0.2 10*3/uL (0.0-0.87); Eosinophils % 0.9 % (0.00-10.9); Hematocrit 36.2 VOL% (35.7-47.0); Hemoglobin 11.3 GM/DL (12.0-16.0); Immature Granulocytes % 4.7 %; Immature Granulocytes Absolute 0.79 #; Lymphocytes # 0.7 10*3/uL (1.4-4.0); Lymphocytes % 4.3 % (21.3-54.2); Mean Corpuscular HGB Conc 31.2 GM/DL (32-36); Mean Corpuscular Hemoglobin 25 PG (27-34); Mean Corpuscular Volume 79.7 FL (87-102); Monocytes # 0.8 10*3/uL (0.11-0.8); Monocytes % 4.9 % (1.7-12.7); Neutrophils # 14.3 10*3/uL (1.4-7.4); Platelet Count 273 T/CUMM (130-400); Red Blood Count 4.54 MC/CUMM (3.8-5.5); Red Cell Distribution Width 31.4 % (9.3-17.3); White Blood Count 16.8 T/CUMM (4-12)
[2017-09-16 05:21] LABS: Calcium 8.2 MG/DL (8.5-10.1); Eosinophils 2 % (0-10); Lymphocytes 3 % (20-55); Osmolality,Calculated 293.8 MOS/KG (273-304); Platelet Estimate Adequate; Potassium 3.5 MMOL/L (3.5-5.1); Segmented Neutrophils 89 % (50-85); Total Cells Counted 100
[2017-09-16 05:22] LABS: Giant Platelets Few; Hypochromasia 1+; Microcytosis Slight
[2017-09-16] MEDS: LEVOTHYROXINE 25 MCG TABLET PO SCH (05:38)
[2017-09-16] MEDS: CYPROHEPTADINE 4 MG TABLET PO SCH ×2 (08:37→21:11)
[2017-09-16] MEDS: FERROUS GLUCONATE 240 MG TABLET PO SCH (08:37)
[2017-09-16] MEDS: FUROSEMIDE 20 MG TABLET PO SCH (08:38)
[2017-09-16] MEDS: LINACLOTIDE 145 MCG CAPSULE PO SCH (08:38)
[2017-09-16] MEDS: PANTOPRAZOLE 40 MG TABLET PO SCH ×2 (08:38→21:11)
[2017-09-16] MEDS: predniSONE 10 MG TABLET PO SCH (08:38)
[2017-09-16] MEDS: ASCORBIC ACID 500 MG TABLET PO SCH ×2 (08:38→21:10)
[2017-09-16] MEDS: CARVEDILOL 6.25 MG TABLET PO SCH ×2 (08:38→21:11)
[2017-09-16] MEDS: DESITIN 4OZ/NYSTATIN 15 GRAM MIXTURE PASTE TOP SCH ×2 (08:39→21:18)
[2017-09-16] MEDS: INSULIN LISPRO 100 UNIT/ML SUBCUT SCH ×4 (08:39→21:11)
[2017-09-16] MEDS ORDERED: HYDROCORTISONE 1% CREAM 28 GM TUBE TOP PRN (13:21)
[2017-09-16] MEDS: CIPROFLOXACIN 500 MG TABLET PO SCH (17:17)
[2017-09-17] MEDS: ALBUTEROL/IPRATROPIUM 3 ML NEB RESP TX SCH ×4 (02:32→14:00)
[2017-09-17] MEDS: LINACLOTIDE 145 MCG CAPSULE PO SCH (06:48)
[2017-09-17] MEDS: LEVOTHYROXINE 25 MCG TABLET PO SCH (06:48)
[2017-09-17 06:51] LABS: Basophils % 0.2 % (0.0-0.8); Eosinophils # 0.1 10*3/uL (0.0-0.87); Eosinophils % 0.6 % (0.00-10.9); Hematocrit 33.8 VOL% (35.7-47.0); Hemoglobin 10.6 GM/DL (12.0-16.0); Immature Granulocytes % 2.4 %; Immature Granulocytes Absolute 0.42 #; Lymphocytes # 0.7 10*3/uL (1.4-4.0); Lymphocytes % 3.9 % (21.3-54.2); Mean Corpuscular HGB Conc 31.4 GM/DL (32-36); Mean Corpuscular Hemoglobin 25 PG (27-34); Mean Corpuscular Volume 79.7 FL (87-102); Monocytes # 0.8 10*3/uL (0.11-0.8); Monocytes % 4.2 % (1.7-12.7); Neutrophils # 15.7 10*3/uL (1.4-7.4); Neutrophils % 88.7 % (38.7-73.9); Platelet Count 228 T/CUMM (130-400); Red Blood Count 4.24 MC/CUMM (3.8-5.5); Red Cell Distribution Width 31.3 % (9.3-17.3); White Blood Count 17.7 T/CUMM (4-12)
[2017-09-17 07:10] LABS: Band Neutrophils 1 % (0-10); Giant Platelets Few; Hypochromasia 1+; Lymphocytes 7 % (20-55); Microcytosis Slight; Platelet Estimate Adequate; Segmented Neutrophils 87 % (50-85); Total Cells Counted 100
[2017-09-17 07:22] LABS: Calcium 8.4 MG/DL (8.5-10.1); Osmolality,Calculated 292.7 MOS/KG (273-304); Potassium 3.4 MMOL/L (3.5-5.1)
[2017-09-17] MEDS: INSULIN LISPRO 100 UNIT/ML SUBCUT SCH ×2 (07:39→12:27)
[2017-09-17] MEDS: FERROUS GLUCONATE 240 MG TABLET PO SCH (08:13)
[2017-09-17] MEDS: CARVEDILOL 6.25 MG TABLET PO SCH (08:13)
[2017-09-17] MEDS: predniSONE 10 MG TABLET PO SCH (08:13)
[2017-09-17] MEDS: CIPROFLOXACIN 500 MG TABLET PO SCH (08:13)
[2017-09-17] MEDS: FUROSEMIDE 20 MG TABLET PO SCH (08:13)
[2017-09-17] MEDS: POTASSIUM CHLORIDE 20 MEQ TABLET PO PRN ×2 (08:13→10:53)
[2017-09-17] MEDS: PANTOPRAZOLE 40 MG TABLET PO SCH (08:13)
[2017-09-17] MEDS: ASCORBIC ACID 500 MG TABLET PO SCH (08:14)
[2017-09-17] MEDS: DESITIN 4OZ/NYSTATIN 15 GRAM MIXTURE PASTE TOP SCH (08:14)
[2017-09-17] MEDS: CYPROHEPTADINE 4 MG TABLET PO SCH (08:14)
[2017-09-17] MEDS ORDERED: TUBERCULIN SKIN TEST 0.1 ML SYRINGE INTRADERM ONE (10:28)
[2017-09-17 11:35] LABS: Basophils % 0.2 % (0.0-0.8); Eosinophils # 0.1 10*3/uL (0.0-0.87); Eosinophils % 0.4 % (0.00-10.9); Hematocrit 36.1 VOL% (35.7-47.0); Hemoglobin 10.9 GM/DL (12.0-16.0); Immature Granulocytes % 2.2 %; Lymphocytes # 0.4 10*3/uL (1.4-4.0); Lymphocytes % 2.1 % (21.3-54.2); Mean Corpuscular HGB Conc 30.2 GM/DL (32-36); Mean Corpuscular Hemoglobin 25 PG (27-34); Mean Corpuscular Volume 82.4 FL (87-102); Monocytes # 0.7 10*3/uL (0.11-0.8); Monocytes % 3.6 % (1.7-12.7); Neutrophils # 16.3 10*3/uL (1.4-7.4); Neutrophils % 91.5 % (38.7-73.9); Platelet Count 236 T/CUMM (130-400); Red Blood Count 4.38 MC/CUMM (3.8-5.5); Red Cell Distribution Width 31.6 % (9.3-17.3); White Blood Count 17.8 T/CUMM (4-12)
[2017-09-17 11:52] LABS: Band Neutrophils 1 % (0-10); Lymphocytes 2 % (20-55); Segmented Neutrophils 92 % (50-85); Total Cells Counted 100
[2017-09-17 11:53] LABS: Hypochromasia 1+; Microcytosis 1+; Ovalocytes Slight
[2017-09-17 12:03] LABS: Calcium 8.1 MG/DL (8.5-10.1); Osmolality,Calculated 295.7 MOS/KG (273-304); Potassium 3.9 MMOL/L (3.5-5.1)
[2017-09-17 12:31] VITALS: BP 133/65
== END 2017-09-17 15:30 | disposition swing bed (61) | DRG 811 ==
LOC: N.ED 11:21 → N.EDINP 15:20 → SUATTDRO 15:20 → N.ICU 18:30 → N.4E 09-02 13:55
PROVIDERS: ADMIT Hospitalist; ATTEND Internal Medicine Geriatric Medicine

== ENCOUNTER 2017-10-08 11:24 | Inpatient (IN) ==
[2017-10-08 13:07] LABS: Basophils % 0.1 % (0.0-0.8); Eosinophils # 0.1 10*3/uL (0.0-0.87); Eosinophils % 0.5 % (0.00-10.9); Hematocrit 28.5 VOL% (35.7-47.0); Hemoglobin 8.9 GM/DL (12.0-16.0); Immature Granulocytes % 2.1 %; Immature Granulocytes Absolute 0.21 #; Lymphocytes # 0.3 10*3/uL (1.4-4.0); Lymphocytes % 2.6 % (21.3-54.2); Mean Corpuscular HGB Conc 31.2 GM/DL (32-36); Mean Corpuscular Hemoglobin 28 PG (27-34); Mean Corpuscular Volume 89.6 FL (87-102); Mean Platelet Volume 10.4 FL (9.6-12.0); Monocytes # 0.6 10*3/uL (0.11-0.8); Monocytes % 6.2 % (1.7-12.7); Neutrophils # 8.9 10*3/uL (1.4-7.4); Neutrophils % 88.5 % (38.7-73.9); Platelet Count 202 T/CUMM (130-400); Red Blood Count 3.18 MC/CUMM (3.8-5.5); Red Cell Distribution Width 31.8 % (9.3-17.3); White Blood Count 10.1 T/CUMM (4-12)
[2017-10-08 13:37] LABS: Calcium 8.2 MG/DL (8.5-10.1); Osmolality,Calculated 319.4 MOS/KG (273-304)
[2017-10-08 13:38] LABS: Potassium 6.1 MMOL/L (3.5-5.1)
[2017-10-08 13:55] LABS: Eosinophils 2 % (0-10); Lymphocytes 2 % (20-55); Segmented Neutrophils 90 % (50-85); Total Cells Counted 100
[2017-10-08 13:56] LABS: Anisocytosis 1+; Burr Cells Few; Platelet Estimate Adequate
[2017-10-08] MEDS: SODIUM POLYSTYRENE SULFATE 15 GM/60 ML BOTTLE PO SCH ×2 (14:56→22:49)
[2017-10-08] MEDS: ENOXAPARIN 30 MG/0.3 ML SYRINGE SUBCUT SCH (14:57)
[2017-10-08] MEDS ORDERED: SODIUM CHLORIDE 0.9% 1,000 ML IV SCH (15:00)
[2017-10-08 15:36] LABS: Apearance,Urine CLOUDY (Clear); Bilirubin,Urine Negative (Negative); Blood, Urine Moderate mg/dL (Negative); Glucose,Urine (UA) Negative (Negative); Ketones,Urine Negative (Negative); Nitrite,Urine Negative (Negative); Protein,Urine 100 MG/DL; RBC,Urine 303 /HPF (0-4); Urine Color Amber (Yellow); Urine Specific Gravity 1.009 (1.001-1.035); Urine Urobilinogen < 2.0 EU/DL (0.2-1.0); WBC,Urine 1746 /HPF (0-6)
[2017-10-08] MEDS ORDERED: LACTULOSE 20 GM/30 ML UDCUP PO PRN (15:53)
[2017-10-08 16:49] LABS: Albumin 2.6 G/DL (3.4-5.0); Bilirubin,Direct 0.22 MG/DL (0.0-0.20); Bilirubin,Indirect 0.3 MG/DL (0.0-1.0); Bilirubin,Total 0.5 MG/DL (0.2-1.0); Total Protein 6.1 G/DL (6.4-8.3)
[2017-10-08 16:57] LABS: Albumin 2.6 G/DL (3.4-5.0); Bilirubin,Total 0.4 MG/DL (0.2-1.0); Osmolality,Calculated 322.4 MOS/KG (273-304); Thyroid Stimulating Hormone 2.79 uIU/ml (0.358-3.74); Total Protein 5.7 G/DL (6.4-8.3)
[2017-10-08 17:02] LABS: Potassium 6.2 MMOL/L (3.5-5.1)
[2017-10-08 17:11] LABS: Creatinine,Urine Random 61 MG/DL; Total Protein,Urine Random 90 MG/DL
[2017-10-08] MEDS: SODIUM BICARB INJ 100 MEQ in DEXTROSE 5% 1,000 ML IV SCH (17:39)
[2017-10-08 17:42] LABS: Hepatitis A Ab IgM Result Negative (Negative); Hepatitis B Core IgM Quant 0.23 Index; Hepatitis B Core IgM Result Negative (Negative); Hepatitis B Surface Ag Quant < 0.10 Index; Hepatitis B Surface Ag Result Negative (Negative); Hepatitis C Virus Ab Quant 0.14 Index; Hepatitis C Virus Ab Result Negative (Negative)
[2017-10-09] MEDS: SODIUM POLYSTYRENE SULFATE 15 GM/60 ML BOTTLE PO SCH ×2 (03:30→09:43)
[2017-10-09] MEDS: SODIUM BICARB INJ 100 MEQ in DEXTROSE 5% 1,000 ML IV SCH ×2 (04:53→15:45)
[2017-10-09 05:01] LABS: Eosinophils % 0.4 % (0.00-10.9); Hematocrit 22.4 VOL% (35.7-47.0); Hemoglobin 7.2 GM/DL (12.0-16.0); Immature Granulocytes % 2.2 %; Immature Granulocytes Absolute 0.15 #; Lymphocytes # 0.4 10*3/uL (1.4-4.0); Lymphocytes % 5.3 % (21.3-54.2); Mean Corpuscular HGB Conc 32.1 GM/DL (32-36); Mean Corpuscular Hemoglobin 28 PG (27-34); Mean Corpuscular Volume 87.5 FL (87-102); Mean Platelet Volume 10.8 FL (9.6-12.0); Monocytes # 0.6 10*3/uL (0.11-0.8); Monocytes % 9.4 % (1.7-12.7); Neutrophils # 5.6 10*3/uL (1.4-7.4); Neutrophils % 82.7 % (38.7-73.9); Platelet Count 178 T/CUMM (130-400); Red Blood Count 2.56 MC/CUMM (3.8-5.5); Red Cell Distribution Width 31.6 % (9.3-17.3); White Blood Count 6.8 T/CUMM (4-12)
[2017-10-09 05:19] LABS: Hypochromasia 1+; Microcytosis 2+
[2017-10-09 05:20] LABS: Ovalocytes Slight; Platelet Estimate Adequate; Spherocytes Slight
[2017-10-09 05:35] LABS: Calcium 7.2 MG/DL (8.5-10.1); Osmolality,Calculated 328.5 MOS/KG (273-304); Potassium 4.6 MMOL/L (3.5-5.1)
[2017-10-09] MEDS ORDERED: DEXTROSE 50% 25 GM/50 ML VIAL IV PRN (06:17)
[2017-10-09] MEDS ORDERED: GLUCAGON 1 MG VIAL IM PRN (06:17)
[2017-10-09] MEDS: ALBUTEROL/IPRATROPIUM 3 ML NEB RESP TX SCH ×3 (07:54→19:37)
[2017-10-09] MEDS ORDERED: BISACODYL 5 MG TABLET PO PRN (08:21)
[2017-10-09] MEDS ORDERED: PANTOPRAZOLE 40 MG TABLET PO SCH (09:00)
[2017-10-09] MEDS: INSULIN REGULAR 100 UNIT/ML SUBCUT SCH ×4 (09:02→22:04)
[2017-10-09] MEDS: DOCUSATE SODIUM 100 MG CAPSULE PO PRN (09:43)
[2017-10-09] MEDS: LINACLOTIDE 145 MCG CAPSULE PO SCH (09:43)
[2017-10-09] MEDS: CYPROHEPTADINE 4 MG TABLET PO SCH ×2 (09:43→21:56)
[2017-10-09] MEDS: CARVEDILOL 6.25 MG TABLET PO SCH ×2 (09:44→21:56)
[2017-10-09] MEDS: predniSONE 10 MG TABLET PO SCH (09:44)
[2017-10-09] MEDS: ASCORBIC ACID 500 MG TABLET PO SCH ×2 (09:44→21:56)
[2017-10-09] MEDS: LEVOTHYROXINE 50 MCG TABLET PO SCH (09:44)
[2017-10-09] MEDS: cefTRIAXone 1,000 MG in SYRINGE 1 EACH IV SCH (09:44)
[2017-10-09] MEDS ORDERED: SODIUM CHLORIDE 0.9% 500 ML IV ONE (12:11)
[2017-10-09] MEDS: ENOXAPARIN 30 MG/0.3 ML SYRINGE SUBCUT SCH (14:01)
[2017-10-09] MEDS: DESITIN 4OZ/NYSTATIN 15 GRAM MIXTURE PASTE TOP SCH (21:56)
[2017-10-09] MEDS: FERROUS SULFATE 325 MG TABLET PO SCH (21:56)
[2017-10-10] MEDS: ALBUTEROL/IPRATROPIUM 3 ML NEB RESP TX SCH ×4 (01:11→19:24)
[2017-10-10] MEDS: SODIUM BICARB INJ 100 MEQ in DEXTROSE 5% 1,000 ML IV SCH ×3 (02:45→16:35)
[2017-10-10] MEDS ORDERED: SODIUM CHLORIDE 0.9% 1,000 ML IV PRN (07:00)
[2017-10-10] MEDS: LEVOTHYROXINE 50 MCG TABLET PO SCH (07:12)
[2017-10-10 07:16] LABS: Basophils % 0.1 % (0.0-0.8); Eosinophils % 0.2 % (0.00-10.9); Hemoglobin 7.2 GM/DL (12.0-16.0); Immature Granulocytes % 3.6 %; Immature Granulocytes Absolute 0.29 #; Lymphocytes # 0.4 10*3/uL (1.4-4.0); Lymphocytes % 5.5 % (21.3-54.2); Mean Corpuscular HGB Conc 31.3 GM/DL (32-36); Mean Corpuscular Hemoglobin 27 PG (27-34); Mean Corpuscular Volume 87.5 FL (87-102); Mean Platelet Volume 11.5 FL (9.6-12.0); Monocytes # 0.6 10*3/uL (0.11-0.8); Monocytes % 7.8 % (1.7-12.7); Neutrophils # 6.6 10*3/uL (1.4-7.4); Neutrophils % 82.8 % (38.7-73.9); Platelet Count 162 T/CUMM (130-400); Red Blood Count 2.63 MC/CUMM (3.8-5.5); Red Cell Distribution Width 31.3 % (9.3-17.3)
[2017-10-10 07:35] LABS: Hypochromasia 1+; Microcytosis 2+
[2017-10-10 07:36] LABS: Ovalocytes Slight; Platelet Estimate Adequate
[2017-10-10 07:43] LABS: Osmolality,Calculated 311.8 MOS/KG (273-304)
[2017-10-10 07:49] LABS: Albumin 2.2 G/DL (3.4-5.0); Bilirubin,Total 0.5 MG/DL (0.2-1.0); Calcium 6.9 MG/DL (8.5-10.1); Osmolality,Calculated 316.8 MOS/KG (273-304); Total Protein 4.7 G/DL (6.4-8.3)
[2017-10-10] MEDS: CYPROHEPTADINE 4 MG TABLET PO SCH (09:33)
[2017-10-10] MEDS: LINACLOTIDE 145 MCG CAPSULE PO SCH (09:33)
[2017-10-10] MEDS: CARVEDILOL 6.25 MG TABLET PO SCH ×2 (09:33→21:52)
[2017-10-10] MEDS: cefTRIAXone 1,000 MG in SYRINGE 1 EACH IV SCH (09:34)
[2017-10-10] MEDS: predniSONE 10 MG TABLET PO SCH (09:34)
[2017-10-10] MEDS: PANTOPRAZOLE 40 MG TABLET PO SCH ×2 (09:34→21:52)
[2017-10-10] MEDS: DESITIN 4OZ/NYSTATIN 15 GRAM MIXTURE PASTE TOP SCH ×2 (09:34→21:52)
[2017-10-10] MEDS: DOCUSATE SODIUM 100 MG CAPSULE PO PRN (09:34)
[2017-10-10] MEDS: INSULIN REGULAR 100 UNIT/ML SUBCUT SCH ×4 (09:34→21:52)
[2017-10-10] MEDS: ASCORBIC ACID 500 MG TABLET PO SCH ×2 (09:34→21:52)
[2017-10-10] MEDS: ENOXAPARIN 30 MG/0.3 ML SYRINGE SUBCUT SCH (16:34)
[2017-10-10] MEDS ORDERED: WARFARIN 5 MG TABLET PO SCH (18:00)
[2017-10-10] MEDS: FERROUS SULFATE 325 MG TABLET PO SCH (21:52)
[2017-10-11] MEDS: ALBUTEROL/IPRATROPIUM 3 ML NEB RESP TX SCH ×4 (00:01→19:27)
[2017-10-11 03:51] LABS: Basophils % 0.1 % (0.0-0.8); Eosinophils % 0.4 % (0.00-10.9); Hematocrit 28.1 VOL% (35.7-47.0); Hemoglobin 9.2 GM/DL (12.0-16.0); Immature Granulocytes % 2.6 %; Immature Granulocytes Absolute 0.22 #; Lymphocytes # 0.4 10*3/uL (1.4-4.0); Lymphocytes % 4.4 % (21.3-54.2); Mean Corpuscular HGB Conc 32.7 GM/DL (32-36); Mean Corpuscular Hemoglobin 28 PG (27-34); Mean Corpuscular Volume 86.5 FL (87-102); Monocytes # 0.6 10*3/uL (0.11-0.8); Monocytes % 7.1 % (1.7-12.7); Neutrophils # 7.2 10*3/uL (1.4-7.4); Neutrophils % 85.4 % (38.7-73.9); Platelet Count 138 T/CUMM (130-400); Red Blood Count 3.25 MC/CUMM (3.8-5.5); Red Cell Distribution Width 25.2 % (9.3-17.3); White Blood Count 8.4 T/CUMM (4-12)
[2017-10-11 04:16] LABS: Calcium 6.6 MG/DL (8.5-10.1); Osmolality,Calculated 309.1 MOS/KG (273-304); Potassium 3.9 MMOL/L (3.5-5.1)
[2017-10-11] MEDS: SODIUM BICARB INJ 100 MEQ in DEXTROSE 5% 1,000 ML IV SCH ×2 (06:34→09:44)
[2017-10-11] MEDS: LEVOTHYROXINE 50 MCG TABLET PO SCH (06:36)
[2017-10-11 08:15] LABS: Basophils % 0.1 % (0.0-0.8); Eosinophils # 0.1 10*3/uL (0.0-0.87); Eosinophils % 0.9 % (0.00-10.9); Hematocrit 28.7 VOL% (35.7-47.0); Hemoglobin 9.5 GM/DL (12.0-16.0); Immature Granulocytes % 3.5 %; Immature Granulocytes Absolute 0.28 #; Lymphocytes # 0.4 10*3/uL (1.4-4.0); Lymphocytes % 5.1 % (21.3-54.2); Mean Corpuscular HGB Conc 33.1 GM/DL (32-36); Mean Corpuscular Hemoglobin 29 PG (27-34); Mean Corpuscular Volume 86.2 FL (87-102); Monocytes # 0.6 10*3/uL (0.11-0.8); Monocytes % 7.7 % (1.7-12.7); Neutrophils # 6.7 10*3/uL (1.4-7.4); Neutrophils % 82.7 % (38.7-73.9); Platelet Count 131 T/CUMM (130-400); Red Blood Count 3.33 MC/CUMM (3.8-5.5); Red Cell Distribution Width 24.8 % (9.3-17.3); White Blood Count 8.1 T/CUMM (4-12)
[2017-10-11] MEDS: INSULIN REGULAR 100 UNIT/ML SUBCUT SCH ×4 (08:17→20:42)
[2017-10-11 08:38] LABS: Calcium 6.5 MG/DL (8.5-10.1); Osmolality,Calculated 306.2 MOS/KG (273-304); Potassium 3.8 MMOL/L (3.5-5.1)
[2017-10-11 08:40] LABS: Hypochromasia Slight
[2017-10-11] MEDS: LINACLOTIDE 145 MCG CAPSULE PO SCH (08:58)
[2017-10-11] MEDS: DESITIN 4OZ/NYSTATIN 15 GRAM MIXTURE PASTE TOP SCH ×2 (08:58→22:53)
[2017-10-11] MEDS: PANTOPRAZOLE 40 MG TABLET PO SCH ×2 (08:58→20:42)
[2017-10-11] MEDS: ASCORBIC ACID 500 MG TABLET PO SCH ×2 (08:58→20:42)
[2017-10-11] MEDS: CARVEDILOL 6.25 MG TABLET PO SCH ×2 (08:58→20:42)
[2017-10-11] MEDS: predniSONE 10 MG TABLET PO SCH (08:58)
[2017-10-11] MEDS: ONDANSETRON 4 MG/2 ML VIAL IV PRN (10:03)
[2017-10-11] MEDS: cefTRIAXone 1,000 MG in SYRINGE 1 EACH IV SCH (10:05)
[2017-10-11] MEDS: APIXABAN 2.5 MG TABLET PO SCH ×2 (12:29→20:42)
[2017-10-11] MEDS: LINEZOLID INJ 600 MG in PREMIX 1 EACH IV SCH (17:09)
[2017-10-11] MEDS: FERROUS SULFATE 325 MG TABLET PO SCH (20:42)
[2017-10-12] MEDS: ALBUTEROL/IPRATROPIUM 3 ML NEB RESP TX SCH ×4 (00:17→20:38)
[2017-10-12] MEDS: LINEZOLID INJ 600 MG in PREMIX 1 EACH IV SCH ×2 (04:31→17:11)
[2017-10-12] MEDS: LEVOTHYROXINE 50 MCG TABLET PO SCH (06:39)
[2017-10-12 07:03] LABS: Basophils % 0.1 % (0.0-0.8); Eosinophils # 0.1 10*3/uL (0.0-0.87); Eosinophils % 0.7 % (0.00-10.9); Hematocrit 28.4 VOL% (35.7-47.0); Hemoglobin 9.6 GM/DL (12.0-16.0); Immature Granulocytes % 3.5 %; Immature Granulocytes Absolute 0.28 #; Lymphocytes # 0.4 10*3/uL (1.4-4.0); Lymphocytes % 4.6 % (21.3-54.2); Mean Corpuscular HGB Conc 33.8 GM/DL (32-36); Mean Corpuscular Hemoglobin 29 PG (27-34); Mean Corpuscular Volume 84.8 FL (87-102); Monocytes # 0.5 10*3/uL (0.11-0.8); Monocytes % 6.5 % (1.7-12.7); Neutrophils # 6.9 10*3/uL (1.4-7.4); Neutrophils % 84.6 % (38.7-73.9); Platelet Count 126 T/CUMM (130-400); Red Blood Count 3.35 MC/CUMM (3.8-5.5); Red Cell Distribution Width 24.1 % (9.3-17.3); White Blood Count 8.1 T/CUMM (4-12)
[2017-10-12 07:30] LABS: Lymphocytes 6 % (20-55); Segmented Neutrophils 89 % (50-85); Total Cells Counted 100
[2017-10-12 07:31] LABS: Hypochromasia 1+; Platelet Estimate Adequate; Polychromasia Slight
[2017-10-12] MEDS: INSULIN REGULAR 100 UNIT/ML SUBCUT SCH ×4 (07:53→22:57)
[2017-10-12] MEDS: SODIUM BICARB INJ 100 MEQ in DEXTROSE 5% 1,000 ML IV SCH ×3 (07:53→14:21)
[2017-10-12] MEDS: CARVEDILOL 6.25 MG TABLET PO SCH ×2 (09:03→20:45)
[2017-10-12] MEDS: APIXABAN 2.5 MG TABLET PO SCH ×2 (09:03→20:45)
[2017-10-12] MEDS: ASCORBIC ACID 500 MG TABLET PO SCH ×2 (09:03→20:45)
[2017-10-12] MEDS: predniSONE 10 MG TABLET PO SCH (09:03)
[2017-10-12] MEDS: PANTOPRAZOLE 40 MG TABLET PO SCH ×2 (09:03→20:45)
[2017-10-12] MEDS: DESITIN 4OZ/NYSTATIN 15 GRAM MIXTURE PASTE TOP SCH ×2 (09:04→22:57)
[2017-10-12] MEDS: LINACLOTIDE 145 MCG CAPSULE PO SCH (09:04)
[2017-10-12] MEDS: FERROUS SULFATE 325 MG TABLET PO SCH (20:45)
[2017-10-13] MEDS: ALBUTEROL/IPRATROPIUM 3 ML NEB RESP TX SCH ×4 (00:07→19:16)
[2017-10-13 05:29] LABS: Basophils % 0.1 % (0.0-0.8); Eosinophils # 0.1 10*3/uL (0.0-0.87); Eosinophils % 0.7 % (0.00-10.9); Hematocrit 31.8 VOL% (35.7-47.0); Hemoglobin 10.2 GM/DL (12.0-16.0); Immature Granulocytes % 2.2 %; Immature Granulocytes Absolute 0.21 #; Lymphocytes # 0.2 10*3/uL (1.4-4.0); Lymphocytes % 2.5 % (21.3-54.2); Mean Corpuscular HGB Conc 32.1 GM/DL (32-36); Mean Corpuscular Hemoglobin 28 PG (27-34); Mean Corpuscular Volume 87.8 FL (87-102); Monocytes # 0.5 10*3/uL (0.11-0.8); Monocytes % 5.5 % (1.7-12.7); Neutrophils # 8.4 10*3/uL (1.4-7.4); Platelet Count 130 T/CUMM (130-400); Red Blood Count 3.62 MC/CUMM (3.8-5.5); Red Cell Distribution Width 23.3 % (9.3-17.3); White Blood Count 9.4 T/CUMM (4-12)
[2017-10-13 05:56] LABS: Calcium 6.9 MG/DL (8.5-10.1); Osmolality,Calculated 294.5 MOS/KG (273-304); Potassium 3.8 MMOL/L (3.5-5.1)
[2017-10-13] MEDS: LEVOTHYROXINE 50 MCG TABLET PO SCH (06:05)
[2017-10-13 06:06] LABS: Band Neutrophils 1 % (0-10); Eosinophils 1 % (0-10); Hypochromasia 1+; Lymphocytes 1 % (20-55); Microcytosis 1+; Segmented Neutrophils 94 % (50-85); Total Cells Counted 100
[2017-10-13 06:07] LABS: Platelet Estimate Adequate
[2017-10-13] MEDS: INSULIN REGULAR 100 UNIT/ML SUBCUT SCH ×4 (09:58→21:11)
[2017-10-13] MEDS: ASCORBIC ACID 500 MG TABLET PO SCH ×2 (09:59→21:11)
[2017-10-13] MEDS: hydrALAZINE 25 MG TABLET PO SCH ×3 (09:59→21:11)
[2017-10-13] MEDS: APIXABAN 2.5 MG TABLET PO SCH ×2 (09:59→21:11)
[2017-10-13] MEDS: DOCUSATE SODIUM 100 MG CAPSULE PO PRN (09:59)
[2017-10-13] MEDS: predniSONE 10 MG TABLET PO SCH (09:59)
[2017-10-13] MEDS: CARVEDILOL 6.25 MG TABLET PO SCH ×2 (09:59→21:11)
[2017-10-13] MEDS: LINACLOTIDE 145 MCG CAPSULE PO SCH (10:03)
[2017-10-13] MEDS: PANTOPRAZOLE 40 MG TABLET PO SCH ×2 (12:13→21:11)
[2017-10-13] MEDS: LINEZOLID INJ 600 MG in PREMIX 1 EACH IV SCH ×3 (17:21→17:26)
[2017-10-13] MEDS: DESITIN 4OZ/NYSTATIN 15 GRAM MIXTURE PASTE TOP SCH ×2 (17:27→21:16)
[2017-10-13] MEDS: SODIUM CHLORIDE 0.9% 1,000 ML IV SCH (21:11)
[2017-10-13] MEDS: FERROUS SULFATE 325 MG TABLET PO SCH (21:11)
[2017-10-14] MEDS: ALBUTEROL/IPRATROPIUM 3 ML NEB RESP TX SCH ×4 (01:30→19:17)
[2017-10-14] MEDS: LEVOTHYROXINE 50 MCG TABLET PO SCH (05:58)
[2017-10-14] MEDS: SODIUM CHLORIDE 0.9% 1,000 ML IV SCH (05:59)
[2017-10-14] MEDS: LINEZOLID INJ 600 MG in PREMIX 1 EACH IV SCH ×2 (05:59→18:14)
[2017-10-14] MEDS: INSULIN REGULAR 100 UNIT/ML SUBCUT SCH ×4 (07:30→21:57)
[2017-10-14 08:44] LABS: Basophils % 0.1 % (0.0-0.8); Eosinophils # 0.1 10*3/uL (0.0-0.87); Hematocrit 30.6 VOL% (35.7-47.0); Hemoglobin 9.8 GM/DL (12.0-16.0); Immature Granulocytes % 1.3 %; Immature Granulocytes Absolute 0.12 #; Lymphocytes # 0.3 10*3/uL (1.4-4.0); Lymphocytes % 3.8 % (21.3-54.2); Mean Corpuscular Hemoglobin 28 PG (27-34); Mean Corpuscular Volume 88.4 FL (87-102); Monocytes # 0.6 10*3/uL (0.11-0.8); Monocytes % 6.6 % (1.7-12.7); Neutrophils # 7.9 10*3/uL (1.4-7.4); Neutrophils % 87.2 % (38.7-73.9); Platelet Count 140 T/CUMM (130-400); Red Blood Count 3.46 MC/CUMM (3.8-5.5); Red Cell Distribution Width 23.5 % (9.3-17.3)
[2017-10-14 08:58] LABS: Osmolality,Calculated 297.2 MOS/KG (273-304); Potassium 3.8 MMOL/L (3.5-5.1)
[2017-10-14] MEDS: DESITIN 4OZ/NYSTATIN 15 GRAM MIXTURE PASTE TOP SCH ×2 (09:00→20:41)
[2017-10-14 09:24] LABS: Eosinophils 1 % (0-10); Lymphocytes 9 % (20-55); Platelet Estimate Normal; Segmented Neutrophils 84 % (50-85); Total Cells Counted 100
[2017-10-14 09:25] LABS: Giant Platelets Few; Hypochromasia 1+; Microcytosis 1+; Ovalocytes Slight
[2017-10-14] MEDS: LINACLOTIDE 145 MCG CAPSULE PO SCH (10:20)
[2017-10-14] MEDS: predniSONE 10 MG TABLET PO SCH (10:21)
[2017-10-14] MEDS: APIXABAN 2.5 MG TABLET PO SCH ×2 (10:21→20:41)
[2017-10-14] MEDS: CARVEDILOL 6.25 MG TABLET PO SCH ×2 (10:21→20:41)
[2017-10-14] MEDS: hydrALAZINE 25 MG TABLET PO SCH ×3 (10:21→20:41)
[2017-10-14] MEDS: PANTOPRAZOLE 40 MG TABLET PO SCH ×2 (10:21→20:41)
[2017-10-14] MEDS: DOCUSATE SODIUM 100 MG CAPSULE PO PRN (10:21)
[2017-10-14] MEDS: ASCORBIC ACID 500 MG TABLET PO SCH ×2 (10:22→20:41)
[2017-10-14] MEDS ORDERED: TUBERCULIN SKIN TEST 0.1 ML SYRINGE INTRADERM ONE (16:03)
[2017-10-14] MEDS: FERROUS SULFATE 325 MG TABLET PO SCH (20:41)
[2017-10-15] MEDS: SODIUM CHLORIDE 0.9% 1,000 ML IV SCH ×2 (01:30→22:08)
[2017-10-15] MEDS: ALBUTEROL/IPRATROPIUM 3 ML NEB RESP TX SCH ×4 (02:06→19:00)
[2017-10-15] MEDS: LINEZOLID INJ 600 MG in PREMIX 1 EACH IV SCH ×2 (05:42→15:59)
[2017-10-15] MEDS: LEVOTHYROXINE 50 MCG TABLET PO SCH (05:42)
[2017-10-15 05:46] LABS: Basophils % 0.2 % (0.0-0.8); Eosinophils # 0.1 10*3/uL (0.0-0.87); Eosinophils % 0.7 % (0.00-10.9); Hematocrit 27.3 VOL% (35.7-47.0); Hemoglobin 8.9 GM/DL (12.0-16.0); Immature Granulocytes % 1.3 %; Immature Granulocytes Absolute 0.11 #; Lymphocytes # 0.4 10*3/uL (1.4-4.0); Lymphocytes % 4.5 % (21.3-54.2); Mean Corpuscular HGB Conc 32.6 GM/DL (32-36); Mean Corpuscular Hemoglobin 29 PG (27-34); Mean Corpuscular Volume 88.6 FL (87-102); Mean Platelet Volume 11.5 FL (9.6-12.0); Monocytes # 0.6 10*3/uL (0.11-0.8); Monocytes % 6.7 % (1.7-12.7); Neutrophils # 7.2 10*3/uL (1.4-7.4); Neutrophils % 86.6 % (38.7-73.9); Platelet Count 141 T/CUMM (130-400); Red Blood Count 3.08 MC/CUMM (3.8-5.5); Red Cell Distribution Width 23.9 % (9.3-17.3); White Blood Count 8.3 T/CUMM (4-12)
[2017-10-15 06:04] LABS: Calcium 7.2 MG/DL (8.5-10.1); Osmolality,Calculated 294.2 MOS/KG (273-304); Potassium 4.4 MMOL/L (3.5-5.1)
[2017-10-15 06:08] LABS: Calcium 7.2 MG/DL (8.5-10.1); Hypochromasia 1+; Microcytosis 1+; Osmolality,Calculated 295.1 MOS/KG (273-304); Ovalocytes Slight; Potassium 4.4 MMOL/L (3.5-5.1)
[2017-10-15 06:09] LABS: Platelet Estimate Adequate
[2017-10-15] MEDS: LINACLOTIDE 145 MCG CAPSULE PO SCH (09:43)
[2017-10-15] MEDS: APIXABAN 2.5 MG TABLET PO SCH ×2 (09:45→22:03)
[2017-10-15] MEDS: hydrALAZINE 25 MG TABLET PO SCH ×3 (09:45→22:02)
[2017-10-15] MEDS: DESITIN 4OZ/NYSTATIN 15 GRAM MIXTURE PASTE TOP SCH ×2 (09:45→22:07)
[2017-10-15] MEDS: INSULIN REGULAR 100 UNIT/ML SUBCUT SCH ×4 (09:45→22:07)
[2017-10-15] MEDS: ASCORBIC ACID 500 MG TABLET PO SCH ×2 (09:45→22:02)
[2017-10-15] MEDS: predniSONE 10 MG TABLET PO SCH (09:45)
[2017-10-15] MEDS: PANTOPRAZOLE 40 MG TABLET PO SCH ×2 (09:45→22:03)
[2017-10-15] MEDS: CARVEDILOL 6.25 MG TABLET PO SCH ×2 (09:45→22:02)
[2017-10-15] MEDS: FERROUS SULFATE 325 MG TABLET PO SCH (22:02)
[2017-10-15] MEDS: ACETAMINOPHEN 325 MG TABLET PO PRN (22:02)
[2017-10-15] MEDS: ONDANSETRON 4 MG/2 ML VIAL IV PRN (22:03)
[2017-10-16] MEDS: ALBUTEROL/IPRATROPIUM 3 ML NEB RESP TX SCH ×4 (00:15→19:24)
[2017-10-16] MEDS: ACETAMINOPHEN 325 MG TABLET PO PRN ×2 (02:45→21:06)
[2017-10-16] MEDS: LINEZOLID INJ 600 MG in PREMIX 1 EACH IV SCH ×2 (04:44→16:36)
[2017-10-16] MEDS: LEVOTHYROXINE 50 MCG TABLET PO SCH (06:09)
[2017-10-16 07:28] LABS: Calcium 7.6 MG/DL (8.5-10.1); Osmolality,Calculated 296.1 MOS/KG (273-304); Potassium 4.2 MMOL/L (3.5-5.1)
[2017-10-16] MEDS: INSULIN REGULAR 100 UNIT/ML SUBCUT SCH ×4 (07:36→21:28)
[2017-10-16] MEDS: LINACLOTIDE 145 MCG CAPSULE PO SCH (08:38)
[2017-10-16] MEDS: predniSONE 10 MG TABLET PO SCH (08:38)
[2017-10-16] MEDS: ASCORBIC ACID 500 MG TABLET PO SCH ×2 (08:38→21:06)
[2017-10-16] MEDS: hydrALAZINE 25 MG TABLET PO SCH ×3 (08:38→21:06)
[2017-10-16] MEDS: PANTOPRAZOLE 40 MG TABLET PO SCH ×2 (08:38→21:05)
[2017-10-16] MEDS: APIXABAN 2.5 MG TABLET PO SCH ×2 (08:38→21:06)
[2017-10-16] MEDS: DESITIN 4OZ/NYSTATIN 15 GRAM MIXTURE PASTE TOP SCH ×2 (08:38→21:07)
[2017-10-16] MEDS: CARVEDILOL 6.25 MG TABLET PO SCH ×2 (08:38→21:05)
[2017-10-16] MEDS: SODIUM CHLORIDE 0.9% 1,000 ML IV SCH (16:35)
[2017-10-16] MEDS: DOCUSATE SODIUM 100 MG CAPSULE PO PRN (21:05)
[2017-10-16] MEDS: FERROUS SULFATE 325 MG TABLET PO SCH (21:05)
[2017-10-17] MEDS: ALBUTEROL/IPRATROPIUM 3 ML NEB RESP TX SCH ×3 (00:25→14:58)
[2017-10-17] MEDS: LINEZOLID INJ 600 MG in PREMIX 1 EACH IV SCH (05:06)
[2017-10-17] MEDS: LEVOTHYROXINE 50 MCG TABLET PO SCH (05:56)
[2017-10-17 07:06] LABS: Albumin 1.9 G/DL (3.4-5.0); Osmolality,Calculated 298.1 MOS/KG (273-304); Potassium 4.6 MMOL/L (3.5-5.1)
[2017-10-17] MEDS: PANTOPRAZOLE 40 MG TABLET PO SCH (09:08)
[2017-10-17] MEDS: ASCORBIC ACID 500 MG TABLET PO SCH (09:08)
[2017-10-17] MEDS: APIXABAN 2.5 MG TABLET PO SCH (09:09)
[2017-10-17] MEDS: predniSONE 10 MG TABLET PO SCH (09:09)
[2017-10-17] MEDS: CARVEDILOL 6.25 MG TABLET PO SCH (09:09)
[2017-10-17] MEDS: hydrALAZINE 25 MG TABLET PO SCH (09:09)
[2017-10-17] MEDS: INSULIN REGULAR 100 UNIT/ML SUBCUT SCH (09:11)
[2017-10-17] MEDS: LINACLOTIDE 145 MCG CAPSULE PO SCH (09:11)
[2017-10-17] MEDS: DESITIN 4OZ/NYSTATIN 15 GRAM MIXTURE PASTE TOP SCH (09:13)
[2017-10-17 16:42] VITALS: BP 150/68
== END 2017-10-17 14:25 | DRG 683 ==
LOC: N.5E 11:48 → SUATTDRO 11:48
PROVIDERS: ADMIT Internal Medicine; ATTEND Internal Medicine

== ENCOUNTER 2017-10-18 09:08 | Inpatient (IN) ==
[2017-10-18] MEDS ORDERED: OXYMETAZOLINE 0.05% NASAL SPRAY 15 ML BOTTLE BOTH NARES STA (09:44)
[2017-10-18] MEDS ORDERED: OXYMETAZOLINE 0.05% NASAL SPRAY 15 ML BOTTLE ONE (09:46)
[2017-10-18 10:22] LABS: Basophils % 0.1 % (0.0-0.8); Eosinophils # 0.1 10*3/uL (0.0-0.87); Eosinophils % 1.5 % (0.00-10.9); Hematocrit 30.2 VOL% (35.7-47.0); Hemoglobin 10.1 GM/DL (12.0-16.0); Immature Granulocytes % 0.6 %; Immature Granulocytes Absolute 0.05 #; Lymphocytes # 0.5 10*3/uL (1.4-4.0); Lymphocytes % 5.8 % (21.3-54.2); Mean Corpuscular HGB Conc 33.4 GM/DL (32-36); Mean Corpuscular Hemoglobin 30 PG (27-34); Mean Corpuscular Volume 88.6 FL (87-102); Mean Platelet Volume 10.2 FL (9.6-12.0); Monocytes # 0.5 10*3/uL (0.11-0.8); Monocytes % 5.7 % (1.7-12.7); Neutrophils # 6.9 10*3/uL (1.4-7.4); Neutrophils % 86.3 % (38.7-73.9); Platelet Count 128 T/CUMM (130-400); Red Blood Count 3.41 MC/CUMM (3.8-5.5); Red Cell Distribution Width 23.3 % (9.3-17.3); White Blood Count 7.9 T/CUMM (4-12)
[2017-10-18 10:38] LABS: Hypochromasia 1+; Platelet Estimate Normal
[2017-10-18 10:39] LABS: Microcytosis Slight; Ovalocytes Slight
[2017-10-18 10:52] LABS: Albumin 2.4 G/DL (3.4-5.0); Bilirubin,Total 0.4 MG/DL (0.2-1.0); Calcium 8.4 MG/DL (8.5-10.1); Osmolality,Calculated 300.2 MOS/KG (273-304); Potassium 4.3 MMOL/L (3.5-5.1); Total Protein 5.7 G/DL (6.4-8.3)
[2017-10-18 12:07] LABS: PT Patient Result 10.9 SECS; Partial Thromboplastin Time 22.5 SECS (0-40)
[2017-10-18] MEDS ORDERED: ONDANSETRON 4 MG/2 ML VIAL IV PRN (14:11)
[2017-10-18] MEDS ORDERED: ACETAMINOPHEN 325 MG TABLET PO PRN (14:11)
[2017-10-18] MEDS ORDERED: GLUCAGON 1 MG VIAL IM PRN (14:17)
[2017-10-18] MEDS ORDERED: DEXTROSE 50% 25 GM/50 ML VIAL IV PRN (14:17)
[2017-10-18] MEDS ORDERED: POLYETHYLENE GLYCOL POWDER 17 GM PACK PO PRN (14:18)
[2017-10-18] MEDS: INSULIN REGULAR 100 UNIT/ML SUBCUT SCH ×2 (16:52→21:48)
[2017-10-18] MEDS: hydrALAZINE 25 MG TABLET PO SCH ×2 (17:02→21:48)
[2017-10-18] MEDS: FERROUS SULFATE 325 MG TABLET PO SCH (18:48)
[2017-10-18] MEDS: ALBUTEROL/IPRATROPIUM 3 ML NEB RESP TX SCH (19:05)
[2017-10-18] MEDS: CARVEDILOL 6.25 MG TABLET PO SCH (21:48)
[2017-10-18] MEDS: CYPROHEPTADINE 4 MG TABLET PO SCH (21:48)
[2017-10-18] MEDS: ASCORBIC ACID 500 MG TABLET PO SCH (21:50)
[2017-10-19 02:51] LABS: Calcium 7.7 MG/DL (8.5-10.1); Osmolality,Calculated 307.7 MOS/KG (273-304); Potassium 4.5 MMOL/L (3.5-5.1)
[2017-10-19 04:40] LABS: Basophils % 0.3 % (0.0-0.8); Eosinophils # 0.1 10*3/uL (0.0-0.87); Eosinophils % 2.4 % (0.00-10.9); Immature Granulocytes % 1.4 %; Immature Granulocytes Absolute 0.08 #; Lymphocytes # 0.5 10*3/uL (1.4-4.0); Lymphocytes % 7.6 % (21.3-54.2); Mean Corpuscular HGB Conc 32.9 GM/DL (32-36); Mean Corpuscular Hemoglobin 30 PG (27-34); Mean Corpuscular Volume 90.1 FL (87-102); Mean Platelet Volume 11.5 FL (9.6-12.0); Monocytes # 0.4 10*3/uL (0.11-0.8); Monocytes % 6.3 % (1.7-12.7); NRBC # 0.02 10*3/uL; Neutrophils # 4.8 10*3/uL (1.4-7.4); Platelet Count 129 T/CUMM (130-400); Red Blood Count 1.82 MC/CUMM (3.8-5.5); Red Cell Distribution Width 23.2 % (9.3-17.3); White Blood Count 5.9 T/CUMM (4-12)
[2017-10-19 04:46] LABS: Hemoglobin 5.4 GM/DL (12.0-16.0)
[2017-10-19 04:47] LABS: Hematocrit 16.4 VOL% (35.7-47.0); INR 1.1; PT Patient Result 11.3 SECS
[2017-10-19 05:28] LABS: Anisocytosis 1+; Poikilocytosis 1+
[2017-10-19] MEDS ORDERED: SODIUM CHLORIDE 0.9% 1,000 ML IV PRN (06:58)
[2017-10-19] MEDS: ALBUTEROL/IPRATROPIUM 3 ML NEB RESP TX SCH ×4 (07:18→18:45)
[2017-10-19] MEDS: INSULIN REGULAR 100 UNIT/ML SUBCUT SCH ×4 (08:03→21:10)
[2017-10-19] MEDS: LINACLOTIDE 145 MCG CAPSULE PO SCH (11:31)
[2017-10-19] MEDS: LEVOTHYROXINE 25 MCG TABLET PO SCH (11:31)
[2017-10-19] MEDS: CYPROHEPTADINE 4 MG TABLET PO SCH ×2 (11:31→21:10)
[2017-10-19] MEDS: PANTOPRAZOLE 40 MG TABLET PO SCH (11:33)
[2017-10-19] MEDS: hydrALAZINE 25 MG TABLET PO SCH ×3 (11:34→21:10)
[2017-10-19] MEDS: CARVEDILOL 6.25 MG TABLET PO SCH ×2 (11:34→21:10)
[2017-10-19] MEDS: predniSONE 10 MG TABLET PO SCH (11:34)
[2017-10-19] MEDS: ASCORBIC ACID 500 MG TABLET PO SCH ×2 (11:34→21:10)
[2017-10-19] MEDS: OXYMETAZOLINE 0.05% NASAL SPRAY 15 ML BOTTLE BOTH NARES SCH (17:59)
[2017-10-19] MEDS: FERROUS SULFATE 325 MG TABLET PO SCH (21:10)
[2017-10-19 23:54] LABS: Hematocrit 21.3 VOL% (35.7-47.0); Hemoglobin 6.9 GM/DL (12.0-16.0)
[2017-10-20] MEDS: ALBUTEROL/IPRATROPIUM 3 ML NEB RESP TX SCH ×4 (00:10→19:29)
[2017-10-20 04:49] LABS: Basophils % 0.2 % (0.0-0.8); Eosinophils # 0.1 10*3/uL (0.0-0.87); Eosinophils % 1.5 % (0.00-10.9); Hematocrit 23.9 VOL% (35.7-47.0); Hemoglobin 7.3 GM/DL (12.0-16.0); Immature Granulocytes % 0.7 %; Immature Granulocytes Absolute 0.03 #; Lymphocytes # 0.3 10*3/uL (1.4-4.0); Lymphocytes % 7.4 % (21.3-54.2); Mean Corpuscular HGB Conc 30.5 GM/DL (32-36); Mean Corpuscular Hemoglobin 29 PG (27-34); Mean Corpuscular Volume 95.6 FL (87-102); Mean Platelet Volume 11.6 FL (9.6-12.0); Monocytes # 0.3 10*3/uL (0.11-0.8); Monocytes % 7.2 % (1.7-12.7); Neutrophils # 3.8 10*3/uL (1.4-7.4); Platelet Count 106 T/CUMM (130-400); Red Cell Distribution Width 19.3 % (9.3-17.3); White Blood Count 4.6 T/CUMM (4-12)
[2017-10-20 05:23] LABS: Albumin 2.2 G/DL (3.4-5.0); Bilirubin,Total 0.5 MG/DL (0.2-1.0); Calcium 7.5 MG/DL (8.5-10.1); Osmolality,Calculated 303.8 MOS/KG (273-304); Potassium 4.9 MMOL/L (3.5-5.1); Total Protein 4.3 G/DL (6.4-8.3)
[2017-10-20 05:28] LABS: Calcium 7.5 MG/DL (8.5-10.1); Osmolality,Calculated 308.7 MOS/KG (273-304)
[2017-10-20] MEDS ORDERED: SODIUM CHLORIDE 0.9% 1,000 ML IV PRN ×2 (09:09→09:37)
[2017-10-20] MEDS: ASCORBIC ACID 500 MG TABLET PO SCH ×2 (09:31→21:55)
[2017-10-20] MEDS: CARVEDILOL 6.25 MG TABLET PO SCH ×2 (09:31→21:55)
[2017-10-20] MEDS: predniSONE 10 MG TABLET PO SCH (09:31)
[2017-10-20] MEDS: PANTOPRAZOLE 40 MG TABLET PO SCH (09:31)
[2017-10-20] MEDS: hydrALAZINE 25 MG TABLET PO SCH ×3 (09:31→21:56)
[2017-10-20] MEDS: CYPROHEPTADINE 4 MG TABLET PO SCH ×2 (09:31→21:56)
[2017-10-20] MEDS: OXYMETAZOLINE 0.05% NASAL SPRAY 15 ML BOTTLE BOTH NARES SCH (09:32)
[2017-10-20] MEDS: LINACLOTIDE 145 MCG CAPSULE PO SCH (09:32)
[2017-10-20] MEDS: LEVOTHYROXINE 25 MCG TABLET PO SCH (09:36)
[2017-10-20] MEDS: INSULIN REGULAR 100 UNIT/ML SUBCUT SCH ×3 (10:23→21:56)
[2017-10-20 14:16] LABS: Hematocrit 27.2 VOL% (35.7-47.0); Hemoglobin 9.3 GM/DL (12.0-16.0)
[2017-10-20] MEDS: ZINC OXIDE PASTE 113 GM TUBE TOP SCH (16:00)
[2017-10-20] MEDS: FERROUS SULFATE 325 MG TABLET PO SCH (20:10)
[2017-10-21] MEDS: ALBUTEROL/IPRATROPIUM 3 ML NEB RESP TX SCH ×4 (00:27→19:36)
[2017-10-21] MEDS: ZINC OXIDE PASTE 113 GM TUBE TOP SCH ×3 (00:42→23:30)
[2017-10-21 05:19] LABS: Basophils % 0.3 % (0.0-0.8); Eosinophils # 0.1 10*3/uL (0.0-0.87); Eosinophils % 1.9 % (0.00-10.9); Hemoglobin 8.3 GM/DL (12.0-16.0); Immature Granulocytes % 0.6 %; Immature Granulocytes Absolute 0.02 #; Lymphocytes # 0.4 10*3/uL (1.4-4.0); Lymphocytes % 10.3 % (21.3-54.2); Mean Corpuscular HGB Conc 33.2 GM/DL (32-36); Mean Corpuscular Hemoglobin 30 PG (27-34); Mean Corpuscular Volume 89.9 FL (87-102); Mean Platelet Volume 10.9 FL (9.6-12.0); Monocytes # 0.4 10*3/uL (0.11-0.8); Monocytes % 10.6 % (1.7-12.7); NRBC # 0.02 10*3/uL; Neutrophils # 2.8 10*3/uL (1.4-7.4); Neutrophils % 76.3 % (38.7-73.9); Platelet Count 105 T/CUMM (130-400); Red Blood Count 2.78 MC/CUMM (3.8-5.5); Red Cell Distribution Width 18.3 % (9.3-17.3); White Blood Count 3.6 T/CUMM (4-12)
[2017-10-21] MEDS: LINACLOTIDE 145 MCG CAPSULE PO SCH (09:23)
[2017-10-21] MEDS: OXYMETAZOLINE 0.05% NASAL SPRAY 15 ML BOTTLE BOTH NARES SCH (09:24)
[2017-10-21] MEDS: PANTOPRAZOLE 40 MG TABLET PO SCH ×3 (09:24→21:20)
[2017-10-21] MEDS: ASCORBIC ACID 500 MG TABLET PO SCH ×2 (09:24→21:20)
[2017-10-21] MEDS: CYPROHEPTADINE 4 MG TABLET PO SCH ×2 (09:24→21:20)
[2017-10-21] MEDS: LEVOTHYROXINE 25 MCG TABLET PO SCH (09:24)
[2017-10-21] MEDS: predniSONE 10 MG TABLET PO SCH (09:24)
[2017-10-21] MEDS: hydrALAZINE 25 MG TABLET PO SCH ×3 (09:25→21:20)
[2017-10-21] MEDS: INSULIN REGULAR 100 UNIT/ML SUBCUT SCH ×4 (09:25→21:20)
[2017-10-21] MEDS: CARVEDILOL 6.25 MG TABLET PO SCH ×2 (09:25→21:20)
[2017-10-21] MEDS: FERROUS SULFATE 325 MG TABLET PO SCH (21:20)
[2017-10-22] MEDS: ALBUTEROL/IPRATROPIUM 3 ML NEB RESP TX SCH ×4 (00:56→18:56)
[2017-10-22 03:22] LABS: Hematocrit 24.1 VOL% (35.7-47.0)
[2017-10-22 03:47] LABS: Calcium 7.8 MG/DL (8.5-10.1); Osmolality,Calculated 310.4 MOS/KG (273-304)
[2017-10-22] MEDS ORDERED: HEPARIN 5,000 UNIT/1 ML VIAL IV ONE (08:19)
[2017-10-22] MEDS: LINACLOTIDE 145 MCG CAPSULE PO SCH (08:56)
[2017-10-22] MEDS: INSULIN REGULAR 100 UNIT/ML SUBCUT SCH ×4 (08:56→21:40)
[2017-10-22] MEDS: PANTOPRAZOLE 40 MG TABLET PO SCH ×2 (09:30→21:39)
[2017-10-22] MEDS: ASCORBIC ACID 500 MG TABLET PO SCH ×2 (09:30→21:39)
[2017-10-22] MEDS: predniSONE 10 MG TABLET PO SCH (09:30)
[2017-10-22] MEDS: hydrALAZINE 25 MG TABLET PO SCH ×3 (09:30→21:39)
[2017-10-22] MEDS: LEVOTHYROXINE 25 MCG TABLET PO SCH (09:30)
[2017-10-22] MEDS: CARVEDILOL 6.25 MG TABLET PO SCH ×2 (09:30→21:42)
[2017-10-22] MEDS: CYPROHEPTADINE 4 MG TABLET PO SCH ×2 (09:30→21:39)
[2017-10-22] MEDS: ZINC OXIDE PASTE 113 GM TUBE TOP SCH (09:31)
[2017-10-22] MEDS: OXYMETAZOLINE 0.05% NASAL SPRAY 15 ML BOTTLE BOTH NARES SCH (09:31)
[2017-10-22] MEDS: HEPARIN DRIP 25,000 UNITS/500 ML PREMIX IV SCH (12:02)
[2017-10-22] MEDS: WARFARIN 5 MG TABLET PO SCH (17:14)
[2017-10-22] MEDS: FERROUS SULFATE 325 MG TABLET PO SCH (18:06)
[2017-10-23] MEDS: ALBUTEROL/IPRATROPIUM 3 ML NEB RESP TX SCH ×4 (00:48→19:28)
[2017-10-23 02:39] LABS: Basophils % 0.2 % (0.0-0.8); Eosinophils # 0.1 10*3/uL (0.0-0.87); Eosinophils % 1.8 % (0.00-10.9); Hematocrit 23.7 VOL% (35.7-47.0); Hemoglobin 7.9 GM/DL (12.0-16.0); Immature Granulocytes % 0.7 %; Immature Granulocytes Absolute 0.03 #; Lymphocytes # 0.4 10*3/uL (1.4-4.0); Lymphocytes % 8.2 % (21.3-54.2); Mean Corpuscular HGB Conc 33.3 GM/DL (32-36); Mean Corpuscular Hemoglobin 31 PG (27-34); Mean Corpuscular Volume 91.5 FL (87-102); Mean Platelet Volume 11.3 FL (9.6-12.0); Monocytes # 0.4 10*3/uL (0.11-0.8); Monocytes % 9.8 % (1.7-12.7); Neutrophils # 3.5 10*3/uL (1.4-7.4); Neutrophils % 79.3 % (38.7-73.9); Platelet Count 111 T/CUMM (130-400); Red Blood Count 2.59 MC/CUMM (3.8-5.5); White Blood Count 4.4 T/CUMM (4-12)
[2017-10-23 03:16] LABS: Albumin 2.2 G/DL (3.4-5.0); Bilirubin,Total 0.4 MG/DL (0.2-1.0); Osmolality,Calculated 311.4 MOS/KG (273-304); Potassium 4.8 MMOL/L (3.5-5.1); Total Protein 4.8 G/DL (6.4-8.3)
[2017-10-23] MEDS: CYPROHEPTADINE 4 MG TABLET PO SCH ×2 (08:52→22:15)
[2017-10-23] MEDS: LEVOTHYROXINE 25 MCG TABLET PO SCH (08:52)
[2017-10-23] MEDS: hydrALAZINE 25 MG TABLET PO SCH ×3 (08:52→22:19)
[2017-10-23] MEDS: ASCORBIC ACID 500 MG TABLET PO SCH ×2 (08:52→22:15)
[2017-10-23] MEDS: CARVEDILOL 6.25 MG TABLET PO SCH ×2 (08:52→22:15)
[2017-10-23] MEDS: LINACLOTIDE 145 MCG CAPSULE PO SCH (08:53)
[2017-10-23] MEDS: PANTOPRAZOLE 40 MG TABLET PO SCH ×2 (08:53→22:15)
[2017-10-23] MEDS: INSULIN REGULAR 100 UNIT/ML SUBCUT SCH ×4 (08:53→22:16)
[2017-10-23] MEDS: ZINC OXIDE PASTE 113 GM TUBE TOP SCH ×3 (08:53→22:10)
[2017-10-23] MEDS: OXYMETAZOLINE 0.05% NASAL SPRAY 15 ML BOTTLE BOTH NARES SCH (08:54)
[2017-10-23] MEDS: predniSONE 10 MG TABLET PO SCH (08:54)
[2017-10-23 09:41] LABS: INR 1.1; PT Patient Result 11.3 SECS
[2017-10-23] MEDS ORDERED: BISACODYL 5 MG TABLET PO ONE (10:21)
[2017-10-23] MEDS ORDERED: BISACODYL 5 MG TABLET PO PRN (10:21)
[2017-10-23] MEDS: HEPARIN DRIP 25,000 UNITS/500 ML PREMIX IV SCH (16:00)
[2017-10-23] MEDS: WARFARIN 5 MG TABLET PO SCH (18:20)
[2017-10-23] MEDS: FERROUS SULFATE 325 MG TABLET PO SCH (18:20)
[2017-10-24] MEDS: ALBUTEROL/IPRATROPIUM 3 ML NEB RESP TX SCH ×4 (00:58→19:32)
[2017-10-24 03:00] LABS: INR 1.1; PT Patient Result 11.1 SECS
[2017-10-24] MEDS: predniSONE 10 MG TABLET PO SCH (08:37)
[2017-10-24] MEDS: hydrALAZINE 25 MG TABLET PO SCH ×3 (08:37→21:43)
[2017-10-24] MEDS: ASCORBIC ACID 500 MG TABLET PO SCH ×2 (08:37→21:43)
[2017-10-24] MEDS: LINACLOTIDE 145 MCG CAPSULE PO SCH (08:38)
[2017-10-24] MEDS: OXYMETAZOLINE 0.05% NASAL SPRAY 15 ML BOTTLE BOTH NARES SCH (08:38)
[2017-10-24] MEDS: CYPROHEPTADINE 4 MG TABLET PO SCH ×2 (08:38→21:43)
[2017-10-24] MEDS: LEVOTHYROXINE 25 MCG TABLET PO SCH (08:38)
[2017-10-24] MEDS: CARVEDILOL 6.25 MG TABLET PO SCH ×2 (08:38→21:43)
[2017-10-24] MEDS: ZINC OXIDE PASTE 113 GM TUBE TOP SCH ×3 (08:38→21:44)
[2017-10-24] MEDS: PANTOPRAZOLE 40 MG TABLET PO SCH ×2 (08:38→21:43)
[2017-10-24] MEDS: INSULIN REGULAR 100 UNIT/ML SUBCUT SCH ×4 (08:38→21:43)
[2017-10-24] MEDS ORDERED: FUROSEMIDE 40 MG/4 ML VIAL IV ONE (12:55)
[2017-10-24] MEDS ORDERED: WARFARIN 10 MG TABLET PO ONE (13:00)
[2017-10-24] MEDS: WARFARIN 5 MG TABLET PO SCH (18:39)
[2017-10-24] MEDS: FERROUS SULFATE 325 MG TABLET PO SCH (18:39)
[2017-10-24] MEDS: HEPARIN DRIP 25,000 UNITS/500 ML PREMIX IV SCH (18:54)
[2017-10-25] MEDS: ALBUTEROL/IPRATROPIUM 3 ML NEB RESP TX SCH ×4 (00:37→20:28)
[2017-10-25 07:23] LABS: Eosinophils # 0.1 10*3/uL (0.0-0.87); Eosinophils % 1.6 % (0.00-10.9); Hematocrit 20.4 VOL% (35.7-47.0); Immature Granulocytes % 9.9 %; Immature Granulocytes Absolute 0.55 #; Lymphocytes # 0.6 10*3/uL (1.4-4.0); Lymphocytes % 10.3 % (21.3-54.2); Mean Corpuscular HGB Conc 32.8 GM/DL (32-36); Mean Corpuscular Hemoglobin 30 PG (27-34); Mean Corpuscular Volume 91.5 FL (87-102); Mean Platelet Volume 11.2 FL (9.6-12.0); Monocytes # 0.5 10*3/uL (0.11-0.8); Monocytes % 8.1 % (1.7-12.7); NRBC # 0.02 10*3/uL; Neutrophils # 3.9 10*3/uL (1.4-7.4); Neutrophils % 70.1 % (38.7-73.9); Platelet Count 154 T/CUMM (130-400); Red Blood Count 2.23 MC/CUMM (3.8-5.5); Red Cell Distribution Width 18.6 % (9.3-17.3); White Blood Count 5.5 T/CUMM (4-12)
[2017-10-25 07:32] LABS: INR 1.4; PT Patient Result 14.7 SECS
[2017-10-25 07:34] LABS: Hemoglobin 6.7 GM/DL (12.0-16.0)
[2017-10-25 08:01] LABS: Calcium 8.1 MG/DL (8.5-10.1); Osmolality,Calculated 304.4 MOS/KG (273-304); Osmolality,Calculated 305.4 MOS/KG (273-304); Potassium 4.8 MMOL/L (3.5-5.1)
[2017-10-25 08:29] LABS: Anisocytosis 1+; Band Neutrophils 2 % (0-10); Lymphocytes 16 % (20-55); Microcytosis 1+; Ovalocytes Slight; Segmented Neutrophils 77 % (50-85); Total Cells Counted 100
[2017-10-25 08:30] LABS: Platelet Estimate Adequate
[2017-10-25 08:44] LABS: Partial Thromboplastin Time 183.7 SECS (0-40)
[2017-10-25] MEDS: PANTOPRAZOLE 40 MG TABLET PO SCH ×2 (08:55→20:41)
[2017-10-25] MEDS: CYPROHEPTADINE 4 MG TABLET PO SCH ×2 (08:55→20:41)
[2017-10-25] MEDS: ASCORBIC ACID 500 MG TABLET PO SCH ×2 (08:55→20:41)
[2017-10-25] MEDS: CARVEDILOL 6.25 MG TABLET PO SCH ×2 (08:55→20:41)
[2017-10-25] MEDS: LEVOTHYROXINE 25 MCG TABLET PO SCH (08:55)
[2017-10-25] MEDS: hydrALAZINE 25 MG TABLET PO SCH ×3 (08:55→20:41)
[2017-10-25] MEDS: predniSONE 10 MG TABLET PO SCH (08:55)
[2017-10-25 08:56] LABS: Hematocrit 19.8 VOL% (35.7-47.0)
[2017-10-25] MEDS: ZINC OXIDE PASTE 113 GM TUBE TOP SCH ×2 (08:56→20:41)
[2017-10-25] MEDS: INSULIN REGULAR 100 UNIT/ML SUBCUT SCH ×4 (08:56→20:41)
[2017-10-25] MEDS: LINACLOTIDE 145 MCG CAPSULE PO SCH (08:56)
[2017-10-25] MEDS: OXYMETAZOLINE 0.05% NASAL SPRAY 15 ML BOTTLE BOTH NARES SCH (08:56)
[2017-10-25 09:05] LABS: Hemoglobin 6.7 GM/DL (12.0-16.0)
[2017-10-25] MEDS ORDERED: SODIUM CHLORIDE 0.9% 1,000 ML IV PRN (10:01)
[2017-10-25 18:37] LABS: Hematocrit 26.5 VOL% (35.7-47.0); Hemoglobin 8.8 GM/DL (12.0-16.0)
[2017-10-25] MEDS: FERROUS SULFATE 325 MG TABLET PO SCH (18:47)
[2017-10-25] MEDS: WARFARIN 5 MG TABLET PO SCH (18:47)
[2017-10-25] MEDS: HEPARIN DRIP 25,000 UNITS/500 ML PREMIX IV SCH (19:20)
[2017-10-26] MEDS: ALBUTEROL/IPRATROPIUM 3 ML NEB RESP TX SCH ×4 (00:49→19:12)
[2017-10-26 06:18] LABS: Basophils % 0.1 % (0.0-0.8); Eosinophils # 0.1 10*3/uL (0.0-0.87); Hematocrit 26.3 VOL% (35.7-47.0); Immature Granulocytes % 13.5 %; Immature Granulocytes Absolute 0.91 #; Lymphocytes # 0.6 10*3/uL (1.4-4.0); Lymphocytes % 9.3 % (21.3-54.2); Mean Corpuscular HGB Conc 34.2 GM/DL (32-36); Mean Corpuscular Hemoglobin 30 PG (27-34); Mean Corpuscular Volume 88.3 FL (87-102); Mean Platelet Volume 11.3 FL (9.6-12.0); Monocytes # 0.5 10*3/uL (0.11-0.8); Monocytes % 7.2 % (1.7-12.7); NRBC # 0.03 10*3/uL; Neutrophils # 4.7 10*3/uL (1.4-7.4); Neutrophils % 68.9 % (38.7-73.9); Platelet Count 170 T/CUMM (130-400); Red Blood Count 2.98 MC/CUMM (3.8-5.5); Red Cell Distribution Width 18.5 % (9.3-17.3); White Blood Count 6.8 T/CUMM (4-12)
[2017-10-26 06:30] LABS: INR 2.1
[2017-10-26] MEDS: LINACLOTIDE 145 MCG CAPSULE PO SCH (06:37)
[2017-10-26 06:39] LABS: PT Patient Result 21.9 SECS; Partial Thromboplastin Time 71.6 SECS (0-40)
[2017-10-26 06:47] LABS: Eosinophils 2 % (0-10); Lymphocytes 16 % (20-55); Nucleated Red Blood Cells 1 (0-5); Segmented Neutrophils 72 % (50-85); Total Cells Counted 100
[2017-10-26 06:48] LABS: Hypochromasia Slight; Microcytosis 1+; Ovalocytes Slight
[2017-10-26 06:49] LABS: Platelet Estimate Adequate
[2017-10-26 06:55] LABS: Osmolality,Calculated 302.5 MOS/KG (273-304); Potassium 4.7 MMOL/L (3.5-5.1); Thyroid Stimulating Hormone 11.8 uIU/ml (0.358-3.74)
[2017-10-26] MEDS: INSULIN REGULAR 100 UNIT/ML SUBCUT SCH ×4 (08:01→20:51)
[2017-10-26] MEDS: LEVOTHYROXINE 25 MCG TABLET PO SCH (08:02)
[2017-10-26] MEDS: hydrALAZINE 25 MG TABLET PO SCH ×3 (08:02→20:51)
[2017-10-26] MEDS: ASCORBIC ACID 500 MG TABLET PO SCH ×2 (08:03→20:51)
[2017-10-26] MEDS: CARVEDILOL 6.25 MG TABLET PO SCH ×2 (08:03→20:51)
[2017-10-26] MEDS: ZINC OXIDE PASTE 113 GM TUBE TOP SCH ×2 (08:03→20:51)
[2017-10-26] MEDS: predniSONE 10 MG TABLET PO SCH (08:03)
[2017-10-26] MEDS: CYPROHEPTADINE 4 MG TABLET PO SCH ×2 (08:03→20:51)
[2017-10-26] MEDS: PANTOPRAZOLE 40 MG TABLET PO SCH ×2 (08:03→20:51)
[2017-10-26] MEDS: OXYMETAZOLINE 0.05% NASAL SPRAY 15 ML BOTTLE BOTH NARES SCH (08:05)
[2017-10-26] MEDS: FERROUS SULFATE 325 MG TABLET PO SCH (18:23)
[2017-10-26] MEDS: WARFARIN 4 MG TABLET PO SCH (18:23)
[2017-10-27] MEDS: ALBUTEROL/IPRATROPIUM 3 ML NEB RESP TX SCH ×5 (03:02→19:56)
[2017-10-27] MEDS: HEPARIN DRIP 25,000 UNITS/500 ML PREMIX IV SCH (04:21)
[2017-10-27 05:42] LABS: Basophils % 0.4 % (0.0-0.8); Eosinophils # 0.1 10*3/uL (0.0-0.87); Hematocrit 26.4 VOL% (35.7-47.0); Hemoglobin 8.5 GM/DL (12.0-16.0); Immature Granulocytes % 10.8 %; Immature Granulocytes Absolute 0.55 #; Lymphocytes # 0.7 10*3/uL (1.4-4.0); Lymphocytes % 12.8 % (21.3-54.2); Mean Corpuscular HGB Conc 32.2 GM/DL (32-36); Mean Corpuscular Hemoglobin 30 PG (27-34); Mean Corpuscular Volume 91.7 FL (87-102); Mean Platelet Volume 10.9 FL (9.6-12.0); Monocytes # 0.4 10*3/uL (0.11-0.8); Monocytes % 7.7 % (1.7-12.7); NRBC # 0.02 10*3/uL; Neutrophils # 3.4 10*3/uL (1.4-7.4); Neutrophils % 67.3 % (38.7-73.9); Platelet Count 173 T/CUMM (130-400); Red Blood Count 2.88 MC/CUMM (3.8-5.5); Red Cell Distribution Width 18.6 % (9.3-17.3); White Blood Count 5.1 T/CUMM (4-12)
[2017-10-27 05:53] LABS: INR 2.8
[2017-10-27 06:01] LABS: PT Patient Result 28.7 SECS; Partial Thromboplastin Time 52.5 SECS (0-40)
[2017-10-27 06:04] LABS: Calcium 8.5 MG/DL (8.5-10.1); Potassium 4.7 MMOL/L (3.5-5.1)
[2017-10-27 06:13] LABS: Band Neutrophils 1 % (0-10); Lymphocytes 15 % (20-55); Microcytosis 1+; Myelocytes 1 %; Segmented Neutrophils 77 % (50-85); Total Cells Counted 100
[2017-10-27] MEDS: LEVOTHYROXINE 75 MCG TABLET PO SCH (06:33)
[2017-10-27] MEDS: INSULIN REGULAR 100 UNIT/ML SUBCUT SCH ×4 (07:56→21:48)
[2017-10-27] MEDS: CARVEDILOL 6.25 MG TABLET PO SCH ×2 (09:34→21:48)
[2017-10-27] MEDS: PANTOPRAZOLE 40 MG TABLET PO SCH ×2 (09:34→21:48)
[2017-10-27] MEDS: hydrALAZINE 25 MG TABLET PO SCH ×3 (09:34→21:50)
[2017-10-27] MEDS: predniSONE 10 MG TABLET PO SCH (09:34)
[2017-10-27] MEDS: ASCORBIC ACID 500 MG TABLET PO SCH ×2 (09:34→21:48)
[2017-10-27] MEDS: CYPROHEPTADINE 4 MG TABLET PO SCH (09:34)
[2017-10-27] MEDS: OXYMETAZOLINE 0.05% NASAL SPRAY 15 ML BOTTLE BOTH NARES SCH (09:35)
[2017-10-27] MEDS: ZINC OXIDE PASTE 113 GM TUBE TOP SCH ×2 (10:30→21:50)
[2017-10-27] MEDS: LINACLOTIDE 145 MCG CAPSULE PO SCH (10:40)
[2017-10-27] MEDS: WARFARIN 4 MG TABLET PO SCH (17:58)
[2017-10-27] MEDS: FERROUS SULFATE 325 MG TABLET PO SCH (21:48)
[2017-10-28] MEDS: CYPROHEPTADINE 4 MG TABLET PO SCH ×3 (04:19→21:20)
[2017-10-28] MEDS: LEVOTHYROXINE 75 MCG TABLET PO SCH (06:03)
[2017-10-28] MEDS: INSULIN REGULAR 100 UNIT/ML SUBCUT SCH ×4 (07:30→21:17)
[2017-10-28] MEDS: ALBUTEROL/IPRATROPIUM 3 ML NEB RESP TX SCH ×4 (08:20→19:21)
[2017-10-28] MEDS: LINACLOTIDE 145 MCG CAPSULE PO SCH (09:48)
[2017-10-28] MEDS: OXYMETAZOLINE 0.05% NASAL SPRAY 15 ML BOTTLE BOTH NARES SCH (09:49)
[2017-10-28] MEDS: CARVEDILOL 6.25 MG TABLET PO SCH ×2 (09:50→21:20)
[2017-10-28] MEDS: hydrALAZINE 25 MG TABLET PO SCH ×3 (09:50→21:20)
[2017-10-28] MEDS: predniSONE 10 MG TABLET PO SCH (09:51)
[2017-10-28] MEDS: PANTOPRAZOLE 40 MG TABLET PO SCH ×2 (09:51→21:20)
[2017-10-28] MEDS: ASCORBIC ACID 500 MG TABLET PO SCH ×2 (09:51→21:19)
[2017-10-28 11:01] LABS: PT Patient Result 30.9 SECS
[2017-10-28] MEDS: ZINC OXIDE PASTE 113 GM TUBE TOP SCH ×2 (16:15→21:20)
[2017-10-28] MEDS: WARFARIN 4 MG TABLET PO SCH (18:39)
[2017-10-28] MEDS: FERROUS SULFATE 325 MG TABLET PO SCH (19:30)
[2017-10-29] MEDS: ALBUTEROL/IPRATROPIUM 3 ML NEB RESP TX SCH ×4 (01:06→20:14)
[2017-10-29 05:35] LABS: INR 3.3
[2017-10-29 05:40] LABS: PT Patient Result 33.4 SECS
[2017-10-29] MEDS: LEVOTHYROXINE 75 MCG TABLET PO SCH (06:32)
[2017-10-29] MEDS: CARVEDILOL 6.25 MG TABLET PO SCH ×2 (09:35→20:47)
[2017-10-29] MEDS: PANTOPRAZOLE 40 MG TABLET PO SCH ×2 (09:35→20:47)
[2017-10-29] MEDS: LINACLOTIDE 145 MCG CAPSULE PO SCH (09:35)
[2017-10-29] MEDS: CYPROHEPTADINE 4 MG TABLET PO SCH ×2 (09:35→20:47)
[2017-10-29] MEDS: predniSONE 10 MG TABLET PO SCH (09:36)
[2017-10-29] MEDS: hydrALAZINE 25 MG TABLET PO SCH ×3 (09:36→20:47)
[2017-10-29] MEDS: ASCORBIC ACID 500 MG TABLET PO SCH ×2 (09:36→20:47)
[2017-10-29] MEDS: ZINC OXIDE PASTE 113 GM TUBE TOP SCH ×2 (09:36→20:48)
[2017-10-29] MEDS: OXYMETAZOLINE 0.05% NASAL SPRAY 15 ML BOTTLE BOTH NARES SCH (09:36)
[2017-10-29] MEDS: INSULIN REGULAR 100 UNIT/ML SUBCUT SCH ×4 (09:36→20:47)
[2017-10-29] MEDS: WARFARIN 4 MG TABLET PO SCH (18:28)
[2017-10-29] MEDS: FERROUS SULFATE 325 MG TABLET PO SCH (20:47)
[2017-10-30] MEDS: ALBUTEROL/IPRATROPIUM 3 ML NEB RESP TX SCH ×3 (01:00→12:24)
[2017-10-30] MEDS: LINACLOTIDE 145 MCG CAPSULE PO SCH (06:30)
[2017-10-30] MEDS: LEVOTHYROXINE 75 MCG TABLET PO SCH (06:30)
[2017-10-30 06:48] VITALS: BP 160/72
[2017-10-30] MEDS: INSULIN REGULAR 100 UNIT/ML SUBCUT SCH ×2 (09:53→13:29)
[2017-10-30] MEDS: CARVEDILOL 6.25 MG TABLET PO SCH (09:54)
[2017-10-30] MEDS: CYPROHEPTADINE 4 MG TABLET PO SCH (09:54)
[2017-10-30] MEDS: hydrALAZINE 25 MG TABLET PO SCH (09:55)
[2017-10-30] MEDS: predniSONE 10 MG TABLET PO SCH (09:55)
[2017-10-30] MEDS: PANTOPRAZOLE 40 MG TABLET PO SCH (09:55)
[2017-10-30] MEDS: ASCORBIC ACID 500 MG TABLET PO SCH (09:55)
[2017-10-30] MEDS: ZINC OXIDE PASTE 113 GM TUBE TOP SCH (09:56)
[2017-10-30] MEDS: OXYMETAZOLINE 0.05% NASAL SPRAY 15 ML BOTTLE BOTH NARES SCH (09:56)
== END 2017-10-30 14:35 | DRG 813 ==
LOC: N.ED 09:08 → SUATTDRO 14:11 → N.EDINP 14:11 → N.3E 14:47
PROVIDERS: ADMIT Internal Medicine; ATTEND Internal Medicine Geriatric Medicine